=== PATIENT | female | born 1955 ===

== ENCOUNTER → 2024-06-13 10:41 | Outpatient (REF) | payer MEDICAID, SELFPAY | LOC: RCS 10:41 | PROVIDERS: ATTENDING PHYSICIAN Thoracic Surgery (Cardiothoracic Vascular Surgery) | DX: I50.9 Heart failure, unspecified (principal); I35.1 Nonrheumatic aortic (valve) insufficiency; I34.0 Nonrheumatic mitral (valve) insufficiency | CPT/HCPCS: 93306 ==

== ENCOUNTER 2024-06-30 09:15 | Inpatient (IN) | payer MEDICAID, SELFPAY ==
[2024-06-30] VITALS (19 sets, daily range): BP systolic 118–162; BP diastolic 61–111; BMI 32.9
[2024-06-30 10:13] LABS: PT 13.2 Sec (11.4-14.6)
[2024-06-30 10:14] LABS: APTT 31.7 Sec (23.4-35.0)
--- NOTE | 2024-06-30 10:31 | W.PN.UPDATE ---
Update Note
Progress Note Update
Patient admitted for preoperative workup and optimization for planned AVR/MVR/MAZE/ELAA on Wednesday 07/[address] Mcguire. Pt speaks primarily Azeri (Armenian), but her son in law is at the bedside for translation.
No changes to her previous history and physical, she reports ongoing shortness of breath at rest and with activity. Heart rate is irregular, +systolic murmur, lungs are clear; lower extremities with some mild edema.
We are planning for swan jeannine catheter placement today by cardiology with diuresis and/or inotrope if needed based on R heart numbers. I have also started a heparin gtt protocol as pt is in afib and takes eliquis at home (last dose 06/28). Continue
other home medications at this time.
--- NOTE | 2024-06-30 10:35 | PTCARENOTE ---
admitted pt to CVICU. routine EKG, labs completed. admission interview and med rec. completed.
[2024-06-30 10:46] LABS: Glycohemoglobin (HgbA1c) 5.6 % (4.0-5.6)
[2024-06-30] MEDS: LIPITOR 10 MG PO (11:45)
[2024-06-30] MEDS: ZESTRIL 2.5 MG PO (11:45)
--- NOTE | 2024-06-30 11:51 | CM ---
Addendum entered by BETHANY Burdick 06/30/24 16:05:
Met w/ patient and son in law at bedside to complete pre-op teaching.
Reviewed pre and post op routines.
Discussed post op restrictions to include lifting, driving, flying and sternal precautions.
Discussed post op MD appointments, Cardiac Rehab and visit from [facility] Transitional Care RN v VN, depending on availability in geographical location; this was discussed w/ pt./GARCIA.
Plan for CT Surg 07/04
CM to follow
Original Note:
CM following for DC planning needs.
Met w/ patient and son in law at bedside. Son provided translation for pt.
Pt. resides w/ son in law, dtr. and 2 grandchildren (ages 5, 7 mos).
Home is a 2 story home; bedroom located on 2nd floor. Pt. is functionally indep. with ADLs, mobility without the use of any assisted device.
Will return at a later time to complete pre-op teaching.
Anticipate CT Surgery 07/04.
CM to follow.
[2024-06-30] MEDS: SYNTHROID PO (12:03)
[2024-06-30] MEDS: HEPARIN 25000 UNITS/250 ML IV (12:05)
[2024-06-30 12:06] LABS: Hematocrit 38.9 % (37.0-47.0); Hemoglobin 13.3 g/dL (12.0-16.0); Mean Corp Hgb Conc. 34.2 g/dL (33.0-37.0); Mean Corpuscular Hgb 28.9 pg (27.0-31.0); Mean Corpuscular Volume 84.6 fL (81.0-99.0); Mean Platelet Volume 11.1 fL (7.4-10.4); Platelet Count 306 10^3/uL (130-400); Red Cell Dist. Width 13.2 % (11.5-14.5); White Blood Cell Count 6.8 10^3/uL (4.8-10.8)
[2024-06-30 12:30] LABS: ALT (SGPT) 17 U/L (0-35); AST (SGOT) 20 U/L (14-36); Albumin 4.2 g/dl (3.5-5.0); Alkaline Phosphatase 55 U/L (38-126); Blood Urea Nitrogen 17 mg/dl (7-17); Calcium 9.7 mg/dl (8.4-10.2); Carbon Dioxide 26 mmol/L (22-30); Chloride 105 mmol/L (98-107); Estimated Creatinine Clearance 78 ml/min; Glucose 95 mg/dl (70-99); Potassium 4.2 mmol/L (3.5-5.1); Sodium 141 mmol/L (135-145); Total Bilirubin 0.5 mg/dl (0.2-1.3); Total Protein 6.9 g/dl (6.3-8.2); eGFR > 60.00
[2024-06-30] MEDS: KCL 10 MEQ PO (13:50)
[2024-06-30] MEDS: LASIX 40 MG IV (13:50)
[2024-06-30] MEDS: TYLENOL 650 MG PO ×2 (13:56→22:20)
--- NOTE | 2024-06-30 14:00 | PTCARENOTE ---
received pt from lab instructor. pt aaox3, A fib per monitoring analyst HR 80s, PAP 30s/20s, CVP 10-11, CI 1.94, +1 edema, palpable pulses, pox 98% RA, lungs clear, +bs, voids, RIJ cordis w/ SWAN 53, lines zeroed and flushed, piv intact, heparin infusing as
ordered
--- NOTE | 2024-06-30 16:01 | CON.INTV ---
Consultation
Consultation Request
Date/Time Consultation Requested: 06/30/2024
Date/Time Consultation Performed: 06/30/2024
Requesting Provider: Dr. Mcguire
Performing Provider: Dr. Lenin Maldonado
Medical History
-
History of Present Illness:
68-year-old woman with history of bicuspid aortic valve, mixed aortic stenosis and aortic insufficiency, worsening symptoms, worsening LVEF, volume overloaded. Evaluated in the outpatient setting and deemed candidate for valvular surgery. Admitted
to the CVICU for optimization for upcoming surgery.
Right heart catheterization performed, Imperial-Isaias catheter left in place. Cardiac management
Past Medical History
Past Medical History: Other (See assessment and plan)
Social History
Tobacco: Non-smoker (Never)
Alcohol: None
Drug: None
Living: With Family
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
Family History
Family History: Reviewed & Not Pertinent
Allergies / Home Medications
Allergies
Allergy/AdvReac Type Severity Reaction Status Date / Time
No Known Allergies Allergy Unverified 06/30/24 11:02
Home Medications
�Medication �Instructions �Recorded �Confirmed �Last Taken �Type
apixaban 5 mg tablet (Eliquis) 5 mg PO BID Blood Clot 06/30/24 06/30/24 06/28/24 10:00 History
Prevention/Tx
atorvastatin 10 mg tablet 10 mg PO DAILY High Cholesterol 06/30/24 06/30/24 06/28/24 10:00 History
furosemide 20 mg tablet 20 mg PO BID Fluid 06/30/24 06/30/24 06/28/24 10:00 History
Retention/Swelling
levothyroxine 100 mcg tablet 100 mcg PO DAILY Thyroid 06/30/24 06/30/24 06/28/24 10:00 History
(Synthroid)
lisinopril 2.5 mg tablet 2.5 mg PO DAILY Blood Pressure 06/30/24 06/30/24 06/28/24 10:00 History
Review of Systems
-
History Source: Patient
All other systems: Negative unless noted
Vitals / Labs / Diagnostic Testing
Vital Signs
Temp Pulse Resp BP Pulse Ox
97.7 F 77 27 156/74 97
06/30/24 10:16 06/30/24 14:15 06/30/24 14:15 06/30/24 14:00 06/30/24 15:00
Lab Data
06/30/24 09:54
06/30/24 11:44
Laboratory Results
06/30/24
09:54
PT 13.2
INR 1.00
APTT 31.7
Diagnostic Testing:
Physical Exam
-
HEENT: Normocephalic
Cardiovascular: S1/S2 and Murmur
Respiratory: Clear and Non-Labored Respirations
GI: Soft and Non Distended
Neurology: Awake, Alert, Oriented and No Motor Deficits
Skin: Other (Lower extremity edema)
General: Comfortable
Assessment
-
Severe aortic stenosis/aortic regurgitation-progressive/symptomatic-signs of volume overload
Electively admitted 06/30/2024 for optimization for proposed surgery 07/04/2024
Malawian speaking only-son translates
Conditions present prior admission:
Paroxysmal atrial fibrillation
Aortic stenosis
Aortic regurgitation
Hypothyroidism
Goiter
DJD
Chronic low back pain
Hypothyroidism
Assessment and plan:
Patient admitted due to progressive/symptomatic aortic valve disease as above.
PA catheter has been placed-hemodynamic numbers to follow
Cardiac management directed by CT surgery and cardiology.
IV diuretics
Possible inotropes will be needed
Proposed surgery on 07/04/2024
-
Heparin drip given history of atrial fibrillation
Follow PTT
Follow H&H
-
Laboratory testing reviewed. Normal renal function. Normal hemoglobin. Normal LFTs. Normal albumin.
No history of pulmonary disease
Never smoker.
Chest x-ray clear of infiltrates this admission-reviewed
-
Incentive spirometry as able
Nutritional support
-
Critical care statement: A total of 31 minutes of critical care time was provided for this patient today. This includes management of unstable vital signs, evaluation of the patient at bedside, reviewing the patient's pertinent medical records
including ventilator settings, microbiology, laboratory evaluations and discussion with primary team, critical care nursing, and respiratory therapy.
--- NOTE | 2024-06-30 17:09 | PTCARENOTE ---
Amado repositioned by CT RONEL and Dr. Mendoza, cords and tubing changed. MV02 results reported to CT RON[facility].
--- NOTE | 2024-06-30 17:21 | ITS.CL.PN ---
Dispensing Audiologist - Procedure Note
Procedure
Procedure Note:
CARDIAC CATHETERIZATION REPORT
Date of Procedure: 06/30/24
Referring: Dr. London Mcguire
Indication: heart failure, valvular cardiomyopathy
PROCEDURE:
1. Right heart catheterization.
ACCESS:
8 Malawian right internal jugular vein
CATHETERS:
1. 7 Malawian Dearing-Isaias
HEMODYNAMIC DATA
SBP 168/80 (mean 115)
RA 15
RV 51/12 (EDP 16)
PA 46/31 (mean 37)
PCWP 30 (v-waves to 38)
CO/CI 3.46/1.90
SVR 2312
PVR 2.0
Radiation dose (mGy): 3.64
DAP (cm2.Gy): 0.4612
Fluoroscopy time (minutes): 0.8
CONCLUSIONS:
1. Elevated biventricular filling pressures with moderate post-capillary pulmonary hypertension and reduced cardiac index
RECOMMENDATIONS:
1. Expectant management after cardiac catheterization via right internal jugular approach
2. Ok to resume heparin
3. Pre-operative hemodynamic optimization ahead of planned AVR/MRV
Signed: Maicol Barnes MD, PhD
[2024-06-30 17:44] LABS: Mixed Venous O2 Saturation 70.8 %
[2024-06-30] MEDS: COLACE 100 MG PO (20:25)
--- NOTE | 2024-06-30 20:30 | PTCARENOTE ---
Patient received resting in bed. Patient A+A+Ox3. No neurological deficits noted. No c/o pain or discomfort. Language barrier - Spoke with patient's son on cell phone to discuss medications and plan of care - Son explained to patient. Patient
able to understand basic Telugu. Room air. SpO2 98%. Atrial Fibrillation. Heart rate 70's - 80's. Blood pressure via right cuff pressure 128/83 (96). Patient with no c/o chest pain, pressure or discomfort. Normoactive bowel sounds. No BM.
No c/o nausea. No vomiting. Female External Urinary device in place - Yellow urine. Bilateral lower extremity edema. Positive, palpable pulses. Right I.J. Cordis with Isabella Isaias catheter. CVP 4-6. PAP 22/10 (15). C.O. 3.53 C.I. 1.93 SVR
1947. IV Heparin gtt per protocol. Assessment as documented.
[2024-06-30 20:33] LABS: APTT 67.3 Sec (23.4-35.0)
--- NOTE | 2024-06-30 21:15 | PTCARENOTE ---
Most recent PTT result 67.3. In accordance with IV Heparin protocol for Cardiac TX/Acute Coronary, rate of infusion increased by 100 units/hr. IV Heparin now infusing at 1,100 units/hr (11 ml/hr). PTT 6hrs after rate change. No further changes
from previous assessment.
--- NOTE | 2024-06-30 23:00 | PTCARENOTE ---
Patient resting in bed. Dozing intermittently. C.O. 3.41 C.I. 1.86 SVR 1992 CVP 4-5 PAP 14/07 (15). Hemodynamic numbers discussed with SERVICE DESK ANALYST Doug Lambert. No changes in plan of care. Assessment as documented.
[2024-07-01] VITALS (27 sets, daily range): BP systolic 102–153; BP diastolic 56–99; BMI 32.4
--- NOTE | 2024-07-01 01:00 | PTCARENOTE ---
Patient dozing intermittently. No c/o pain or discomfort. IV Heparin gtt infusing per protocol. CVP 4-5 PAP 11/08 (14). C.O. 3.33 C.I. 1.82 SVR 2040. Assessment as documented.
--- NOTE | 2024-07-01 01:20 | W.PN.CT ---
Today's Communication / Plan
-
Monitor swan jeannine numbers, monitor mixed venous�
Maintain on heparin drip�
Chest xray in AM�
Assessment / Plan
-
Paroxysmal atrial fibrillation�
Aortic stenosis�
Aortic regurgitation�
Hypothyroidism�
Goiter�
DJD�
Chronic low back pain�
Hypothyroidism�
Subjective
Procedure
Planned AVR/MVR/MAZE/ELAA on Wednesday 07/[address] Mcguire�
-
Date of Service: July 01, 2024
Objective Data
-
Lab Results
06/30/24 09:54
PT 13.2 Sec (11.4-14.6) 06/30/24 09:54
INR 1.00 06/30/24 09:54
APTT 67.3 Sec (23.4-35.0) H 06/30/24 20:12
Vital Signs
Vital Signs
Temp Pulse Resp BP Pulse Ox
98.9 F 83 19 121/73 96
06/30/24 22:30 07/01/24 00:00 07/01/24 00:00 07/01/24 00:00 07/01/24 00:00
CT Intake/Output/Weight
06/30/24 06/30/24 07/01/24
06:59 18:59 06:59
Intake Total 60 / 513 453 / 513
Output Total 1200 / 1200
Balance -1140 / -687 453 / -687
SaO2: 96
Physical Exam
-
General: Awake
Cardiovascular: Irregular rate & rhythm
Respiratory: Clear
Extremities: Edema +1
--- NOTE | 2024-07-01 04:00 | PTCARENOTE ---
Patient resting in bed without difficulty. No c/o pain or discomfort. C.O. 4.14 C.I. 2.26 SVR 1642 CVP 5 PAP 20/10 (14). No further changes from previous assessment.
[2024-07-01 04:26] LABS: Blood Urea Nitrogen 18 mg/dl (7-17); Calcium 9.5 mg/dl (8.4-10.2); Carbon Dioxide 21 mmol/L (22-30); Chloride 104 mmol/L (98-107); Estimated Creatinine Clearance 78 ml/min; Glucose 95 mg/dl (70-99); Potassium 3.8 mmol/L (3.5-5.1); Sodium 143 mmol/L (135-145); eGFR > 60.00
[2024-07-01 04:29] LABS: APTT 70.3 Sec (23.4-35.0)
--- NOTE | 2024-07-01 05:30 | PTCARENOTE ---
Most recent PTT result 70.3. IV Heparin gtt increased by 100 units/hr. IV Heparin gtt now infusing at 1,200 units/hr (12 ml/hr). PTT to drawn 6hrs after rate change. No further changes from previous assessment.
[2024-07-01] MEDS: SYNTHROID PO (05:42)
--- NOTE | 2024-07-01 06:00 | PTCARENOTE ---
Portable CXR completed. 800 ml yellow urine via Female external urinary device (Pure Wick). Bed scale weight 80.3 kg. Assessment/Interventions as documented.
--- NOTE | 2024-07-01 08:00 | PTCARENOTE ---
Resumed care of patient from previous RN. Walking rounds completed. patient in bed at time of assessment. able to make needs known. AAOx3. patients family on cell phone and able to help translate. AFIB on monitor. Positive, palpable pulses. SpO2
98% on RA. VSS. + bowel sounds. purewick in place. Bilateral lower extremity edema +1. Right I.J. Cordis/swan present. CVP 4-6. PAP 22/10 (15). C.I. 2. IV Heparin gtt infusing per protocol. will continue to monitor.
[2024-07-01] MEDS: ZESTRIL 2.5 MG PO (09:12)
[2024-07-01] MEDS: COLACE 100 MG PO ×2 (09:12→19:55)
[2024-07-01] MEDS: LIPITOR 10 MG PO (09:12)
--- NOTE | 2024-07-01 10:13 | W.PN.CD ---
Addendum entered and electronically signed by Zachary Judd MD 07/01/24 10:51:
I saw and examined the patient.
The SERVICE ORDER CLERK's note was reviewed and I agree with the note.
Primary pressure supervisor Dr. Villareal
68-year-old with history of severe aortic stenosis, aortic regurgitation, mitral regurgitation paroxysmal atrial fibrillation, chronic anticoagulation with Eliquis and mild nonobstructive coronary artery disease who is preop for valve surgery by
Shayla. Patient had right heart catheterization yesterday showing elevated filling pressures with a wedge of 30 patient received additional IV diuresis currently respiratory status is stable while patient is laying in bed. PAD appears down to 15 at
this point. I asked the nurse to rezero and double check the pressures and PAD was still 15. Considering pressures and current respiratory status will not add additional diuretic currently we will need to monitor closely. Would not want to over
diurese with severe
-Patient is off Eliquis. Continue anticoagulation with heparin
-Monitor respiratory status and need for additional diuretic as noted above
-Would stop lisinopril
Original Note:
Today's Communication / Plan
-
d/c Lisinopril and monitor volume status.
Impression / Plan
-
Mrs. Jd Carter is a 68-year-old female (outpatient pressure supervisor is Dr. Villareal at [facility]) who is [place] Citizen Persian speaking, with bicuspid aortic valve with severe symptomatic aortic stenosis/aortic insufficiency, rheumatic moderate mitral regurgitation,
paroxysmal Afib on Eliquis (last dose 06/28/24), HFpEF 50-55%, mild nonobstructive CAD and hypothyroidism, who is here for cardiac optimization for upcoming valve surgery 07/04/24. She had a RHC yesterday with PCWP 30, received IV Lasix yesterday.
Aortic stenosis - severe, symptomatic.
- planned for AVR/MVR/MAZE/NANCY clip on 07/04/[address] Mcguire.
- IV diuresis with IV Lasix yesterday, monitor.
- stopped Lisinopril 2.5mg daily.
Mitral regurgitation - rheumatic, moderate.
- plan as above.
HFpEF - EF 50-55%.
- RHC with PCWP 30, IV Lasix and monitor.
Afib - paroxysmal.
- typically on Eliquis, last dose 06/28.
- now on IV Heparin.
Exam and interview was performed with her son Briana translating via telephone, offered [facility] for translation and they declined.
Physical Exam
Vital Signs/Labs
Vital Signs
Temp Pulse Resp BP Pulse Ox
98.5 F 83 18 102/59 97
07/01/24 08:00 07/01/24 09:12 07/01/24 08:00 07/01/24 09:12 07/01/24 08:00
06/30/24 07/01/24 07/02/24
06:59 06:59 06:59
Actual Weight 177 lb 0.499 oz
06/30/24 09:54
07/01/24 03:17
PT 13.2 Sec (11.4-14.6) 06/30/24 09:54
INR 1.00 06/30/24 09:54
APTT 70.3 Sec (23.4-35.0) H 07/01/24 03:49
Magnesium 2.0 mg/dl (1.6-2.3) 07/01/24 03:17
Physical Exam
Constitutional: No acute distress and Comfortable
EENT: Anicteric and Moist mucous membranes
Cardiovascular: Rhythm/rate is irregular and Systolic murmur present
Respiratory: Respiratory effort normal and Lungs clear to auscul.
GI: Soft, Non tender and Normal bowel sounds
Neuro/Psych: AO x 3
Other: Skin (warm, dry)
Data Reviewed
-
Date of Service: July 01, 2024
Medical Decision Making: Reviewed Test Results
EKG: Tracing Personally Visualized and interpreted
Echo: Report Reviewed by me
X-Ray/CT/US/MRI/NUC/PET: Report Reviewed by me
Labs: Labs Reviewed by me
Old Records: Reviewed
[2024-07-01 12:19] LABS: APTT 80.2 Sec (23.4-35.0)
[2024-07-01] MEDS: HEPARIN 25000 UNITS/250 ML IV (12:30)
--- NOTE | 2024-07-01 13:19 | W.PN.INTV ---
Today's Communication / Plan
Recommendations
Diuretics
Cardiac management
Follow electrolytes
Heparin drip
PA catheter in place
Assessment
-
Severe aortic stenosis/aortic regurgitation-progressive/symptomatic-signs of volume overload
Electively admitted 06/30/2024 for optimization for proposed surgery 07/04/2024
Citizen Of [place] speaking only-son translates
Conditions present prior admission:
Paroxysmal atrial fibrillation
Aortic stenosis
Aortic regurgitation
Hypothyroidism
Goiter
DJD
Chronic low back pain
Hypothyroidism
Assessment and plan:
Patient admitted due to progressive/symptomatic aortic valve disease as above.
PA catheter has been placed-hemodynamic numbers to follow
Cardiac management directed by CT surgery and cardiology.
Status post right heart catheterization 06/30/2024:1. Elevated biventricular filling pressures with moderate post-capillary pulmonary hypertension and reduced cardiac index
Chest x-ray 07/01/2024:Mild cardiomegaly. No acute infiltrates
-
IV diuretics
Proposed surgery on 07/04/2024
Follow PA catheter numbers
Follow renal function and electrolyte
-
Heparin drip given history of atrial fibrillation
Follow PTT
Follow H&H
-
Laboratory testing reviewed. Normal renal function. Normal hemoglobin. Normal LFTs. Normal albumin.
No history of pulmonary disease
Never smoker.
-
Incentive spirometry as able
Nutritional support
-
Critical care statement: A total of 31 minutes of critical care time was provided for this patient today. This includes management of unstable vital signs, evaluation of the patient at bedside, reviewing the patient's pertinent medical records
including ventilator settings, microbiology, laboratory evaluations and discussion with primary team, critical care nursing, and respiratory therapy.
Subjective Dataa
Subjective Data
Date of Service:
Date of Service: July 01, 2024
Objective Data
Data Reviewed
Vital Signs / I&O / Oxygen:
Vital Signs
Temp Pulse Resp BP Pulse Ox
98.6 F 74 18 129/61 99
07/01/24 11:57 07/01/24 11:57 07/01/24 11:57 07/01/24 11:00 07/01/24 11:57
Intake and Output
06/30/24 07/01/24 07/02/24
06:59 06:59 06:59
Intake Total 759 / 759 396 / 396
Output Total 1999 700 / 700
Balance -1241 / -1241 -304 / -304
SaO2 99
Labs/Micro/Reports
Lab Data
06/30/24 09:54
07/01/24 03:17
Laboratory Results
06/30/24 07/01/24 07/01/24
20:12 03:17 03:49
APTT 67.3 H Cancelled 70.3 H
07/01/24
11:44
APTT 80.2 H
[2024-07-01] MEDS: TYLENOL 650 MG PO (14:01)
[2024-07-01] MEDS: NITROSTAT (SUBLINGUAL) 0.4 MG SL ×3 (14:03→21:22)
--- NOTE | 2024-07-01 14:39 | PTCARENOTE ---
patient reports chest pain radiating to both shoulders. ekg done. SL nitro given as well as tylenol. pain subsided. DIRECTOR OF PUBLICATIONSDebra made aware. trop drawn and sent. will continue to monitor.
[2024-07-01 15:14] LABS: Troponin I < 0.012 ng/ml
--- NOTE | 2024-07-01 15:51 | CM ---
Reviewed chart. Me. Miles is scheduled for AVR.MVR on Thursday07/04/24. Telephone call to [facility] to see if they services his area. [facility] area. Will need to see next week if they can accept a new referral.
Prior to admission he resides with his haider, son -in-law and two grandchildren in a two story home. His bedroom/full bathroom is on the second floor Prior to admission he was independent with ambulation and adls. He does not have any DME in the
home. He has a prescription plan and uses [facility]. Medical work-up in progress. The discharge plan is to return home with his daughter and son-in-law and [facility] when medically stable.
--- NOTE | 2024-07-01 17:49 | PTCARENOTE ---
no change in previous assessment. pt helped me to turn and change her pads and sheets. purewick exchanged. will continue to monitor.
--- NOTE | 2024-07-01 19:00 | PTCARENOTE ---
pt c/o moderate chest pain at change of shift, sublingual ntg x1 given with relief to 1/10 pain. pt had tachy episode afterwards to the 140s briefly, CTPA notified. Back down to 90s Afib
[2024-07-01] MEDS: MELATONIN 5 MG PO (19:55)
--- NOTE | 2024-07-01 20:00 | PTCARENOTE ---
assumed care of patient @ 1900. received pt laying in bed, AOx3. non belizean speaking, son in room and available by phone to translate. Afib on tele HR 80s-90s.+ pulses, +1 edema b/l. PAPs 20s/10s, CVP ~ 3, BP 120s/60s. Lungs clear on room air.
belly soft, normoactive. purewick in place draining clear yellow urine. R IJ cordis with swan. Heparin running at 1200 u / hr PTT pending. call montilla within reach .
[2024-07-01 20:05] LABS: APTT > 200 Sec (23.4-35.0)
[2024-07-01 20:38] LABS: APTT 98.3 Sec (23.4-35.0)
--- NOTE | 2024-07-01 21:09 | PTCARENOTE ---
PTT >200 suspect, re drawn and new result 98.3
[2024-07-01] MEDS: MORPHINE SULFATE 1 MG IV (21:48)
--- NOTE | 2024-07-01 22:00 | PTCARENOTE ---
pt still c/o chest pain, morphine ordered and given with relief
[2024-07-02] VITALS (20 sets, daily range): BP systolic 79–156; BP diastolic 55–127
--- NOTE | 2024-07-02 00:54 | PTCARENOTE ---
pt resting comfortably, no change in assessment .
[2024-07-02] MEDS: MORPHINE SULFATE 1 MG IV (03:48)
--- NOTE | 2024-07-02 04:12 | W.PN.CT ---
Today's Communication / Plan
-
-S/p Right heart cath 06/30/24, with monitoring of hemodynamics
-Currently off diuretics
-Cont. current meds (heparin gtt, ASA, Synthroid, Lipitor)
-Cont. to hold SEDA-I/ARBs in preparation for OR
-Will D/C heparin gtt mission analyst to OR
-For AVR/MVR/MAZE/ELAA by Dr. Mcguire on Wednesday 07/04
-Cont. ongoing medical optimization
Assessment / Plan
-
Assessment:
-Paroxysmal atrial fibrillation�
-Moderate /AI/probable bicuspid aortic valve
-Moderate MR�
-Severely left atrial dilatation
-Class 1 obesity (BMI 32.4)
-Hypothyroidism�
-Goiter�
-DJD�
-Chronic low back pain�
Discussed patient care with: Cardiology, Nursing, Respiratory Therapy and Care Team
Subjective
Procedure
Planned AVR/MVR/MAZE/ELAA on Wednesday 07/[address] Mcguire�
-
Date of Service: July 02, 2024
Pt c/o mild chest pain last night, resolved with morphine
Objective Data
-
PT 13.2 Sec (11.4-14.6) 06/30/24 09:54
INR 1.00 06/30/24 09:54
APTT 98.3 Sec (23.4-35.0) H 07/01/24 20:14
Vital Signs
Vital Signs
Temp Pulse Resp BP Pulse Ox
98.8 F 75 22 141/75 98
07/02/24 00:00 07/02/24 00:00 07/02/24 00:00 07/02/24 00:00 07/02/24 00:00
CT Intake/Output/Weight
10/11/24 10/11/24 10/12/24
06:59 18:59 06:59
Intake Total 699 / 759 458 / 648 190 / 648
Output Total 800 / 2000 1100 / 1400 300 / 1400
Balance -101 / -1241 -642 / -752 -110 / -752
SaO2: 98 (RA)
Physical Exam
-
General: Awake, Oriented and AOx3
Cardiovascular: Murmur (2-6)
Respiratory: Clear
Extremities: Other (+trace edema)
Data Reviewed
-
Lab Results: Results Reviewed
Medications: Active Meds Reviewed
Chest X-Ray: Report Reviewed and Image Reviewed
ECG: Report Reviewed and Image Reviewed
[2024-07-02 04:13] LABS: Hematocrit 39.1 % (37.0-47.0); Hemoglobin 13.3 g/dL (12.0-16.0); Mean Corpuscular Hgb 28.3 pg (27.0-31.0); Mean Corpuscular Volume 83.2 fL (81.0-99.0); Platelet Count 282 10^3/uL (130-400); Red Cell Dist. Width 12.8 % (11.5-14.5); White Blood Cell Count 11.5 10^3/uL (4.8-10.8)
--- NOTE | 2024-07-02 04:20 | PTCARENOTE ---
morphine given for pain pain, no other change in assessment
[2024-07-02 04:26] LABS: APTT 81.6 Sec (23.4-35.0)
[2024-07-02 04:28] LABS: Blood Urea Nitrogen 17 mg/dl (7-17); Calcium 9.7 mg/dl (8.4-10.2); Carbon Dioxide 21 mmol/L (22-30); Chloride 106 mmol/L (98-107); Estimated Creatinine Clearance 78 ml/min; Glucose 111 mg/dl (70-99); Sodium 142 mmol/L (135-145); eGFR > 60.00
[2024-07-02] MEDS: TYLENOL 650 MG PO (06:17)
[2024-07-02] MEDS: SYNTHROID 100 MCG PO (06:17)
--- NOTE | 2024-07-02 08:00 | PTCARENOTE ---
Resumed care of patient from previous RN. Walking rounds completed. patient in bed at time of assessment. AAOx3. Remains AFIB on monitor. HR 90s + pulses. SpO2 98% on RA. VSS. + bowel sounds. Bilateral lower extremity edema +1-+2. Right I.J.
Cordis/swan present. Order to d/c swan. Getting patient up and into bathroom now with min assist. IV Heparin gtt infusing per protocol. will continue to monitor.
[2024-07-02] MEDS: COLACE 100 MG PO ×2 (09:18→20:08)
[2024-07-02] MEDS: BUMEX 1 MG IV (09:18)
[2024-07-02] MEDS: LIPITOR 10 MG PO (09:18)
--- NOTE | 2024-07-02 11:16 | W.PN.CD ---
Today's Communication / Plan
-
Will assess response to diuretic given by CT surgery. Caution not to overdiuresis
Chest x-ray
Troponin ECG is ordered
Impression / Plan
-
Mrs. Jd Carter is a 68-year-old female (outpatient rn first assistant is Dr. Villareal at [facility]) who is Citizen Of [place] Lithuanian speaking, with bicuspid aortic valve with severe symptomatic aortic stenosis/aortic insufficiency, rheumatic moderate mitral regurgitation,
paroxysmal Afib on Eliquis (last dose 06/28/24), HFpEF 50-55%, mild nonobstructive CAD and hypothyroidism, who is here for cardiac optimization for upcoming valve surgery 07/04/24. She had a RHC yesterday with PCWP 30, received IV Lasix yesterday.
Aortic stenosis - severe, symptomatic.
- planned for AVR/MVR/MAZE/NANCY clip on 07/04/[address] Mcguire.
-Patient with right heart cath on admission with high filling pressures and wedge pressure of 30 received additional diuretic on the day of admission pressures appear to be better on 07/01/2024 although question of how well Amado was working at that
time. Additional diuretic given today by CT surgery will monitor response
- stopped Lisinopril 2.5mg daily.
.
Chest discomfort and back discomfort. Reported symptoms yesterday etiology unclear ECG without ischemic changes troponin negative. Patient with no known obstructive disease
-Chest x-ray
-Troponin negative. Check follow-up troponin and ECG
Mitral regurgitation - rheumatic, moderate.
- plan as above.
HFpEF - EF 50-55%.
- RHC with PCWP 30, IV Lasix and monitor.
Afib - paroxysmal.
- typically on Eliquis, last dose 06/28.
- now on IV Heparin.
Exam and interview was performed with her son Briana translating via telephone,
Physical Exam
Vital Signs/Labs
Vital Signs
Temp Pulse Resp BP Pulse Ox
98.6 F 93 17 146/127 96
07/02/24 08:00 07/02/24 09:00 07/02/24 09:00 07/02/24 09:00 07/02/24 08:00
07/01/24 07/02/24 07/03/24
06:59 06:59 06:59
Actual Weight 80.3 kg
07/02/24 03:48
PT 13.2 Sec (11.4-14.6) 06/30/24 09:54
INR 1.00 06/30/24 09:54
APTT 81.6 Sec (23.4-35.0) H 07/02/24 03:48
Magnesium 2.0 mg/dl (1.6-2.3) 07/01/24 03:17
LAB Results
07/01/24
14:43
Troponin I < 0.012
Physical Exam
Constitutional: No acute distress
EENT: Anicteric
Cardiovascular: Rhythm & rate is regular
Respiratory: Lungs clear to auscul.
GI: Soft, Non tender and Normal bowel sounds
Neuro/Psych: Alert and AO x 3
Data Reviewed
-
Date of Service: July 02, 2024
Medical Decision Making: Reviewed Test Results
X-Ray/CT/US/MRI/NUC/PET: Report Reviewed by me
Medical Tests (PFT, Pathology etc): Report Reviewed by me
Labs: Labs Reviewed by me
[2024-07-02 12:04] LABS: Troponin I < 0.012 ng/ml
--- NOTE | 2024-07-02 12:07 | W.PN.INTV ---
Today's Communication / Plan
Recommendations
Continue medical optimization
IV diuretics
Increase activity as able
Anticoagulation
Proposed surgery for Thursday
Will see again postoperatively
Assessment
-
Severe aortic stenosis/aortic regurgitation-progressive/symptomatic-signs of volume overload
Electively admitted 06/30/2024 for optimization for proposed surgery 07/04/2024
Gabonese speaking only-son translates
Conditions present prior admission:
Paroxysmal atrial fibrillation
Aortic stenosis
Aortic regurgitation
Hypothyroidism
Goiter
DJD
Chronic low back pain
Hypothyroidism
Assessment and plan:
Patient admitted due to progressive/symptomatic aortic valve disease as above.
Continue with medical optimization
PA catheter discontinued today 07/02/2024
Cardiac management directed by CT surgery and cardiology.
Chest x-ray 07/02/2024: Reviewed showed clear lungs. No pneumothorax. Stable cardiomegaly
Status post right heart catheterization 06/30/2024:1. Elevated biventricular filling pressures with moderate post-capillary pulmonary hypertension and reduced cardiac index
-
Proposed surgery on 07/04/2024
Follow PA catheter numbers
Follow renal function and electrolyte
-
Heparin drip given history of atrial fibrillation
Follow PTT
Follow H&H
-
No history of pulmonary disease
Never smoker.
-
Incentive spirometry as able
Nutritional support
-
Will see again postoperatively.
Subjective Dataa
Subjective Data
Date of Service:
Date of Service: July 02, 2024
Chief Complaint: Change Control Coordinator Follow Up (Severe aortic valve disease)
Subjective:
Interview through family member
No significant complaints
Patient is tense with line in place- limited mobility
Review of Systems
General: Fever (n)
Cardiopulmonary: Dyspnea (n)
GI: Abdominal Pain (n) and Nausea (n)
Objective Data
Data Reviewed
Vital Signs / I&O / Oxygen:
Vital Signs
Temp Pulse Resp BP Pulse Ox
98.6 F 93 17 146/127 96
07/02/24 08:00 07/02/24 09:00 07/02/24 09:00 07/02/24 09:00 07/02/24 08:00
Intake and Output
07/01/24 07/02/24 07/03/24
06:59 06:59 06:59
Intake Total 759 / 759 806 / 806
Output Total 1999 / 1999 1700 / 1700
Balance -1241 / -1241 -894 / -894
SaO2 96
Physical Exam
General: Comfortable
HEENT: Normocephalic
Cardiovascular: S1-S2 and Murmur
Respiratory: Clear and Non-Labored Respirations
GI: Soft and Non Distended
Neurology: Awake and Alert
Labs/Micro/Reports
Lab Data
07/02/24 03:48
Laboratory Results
07/01/24 07/01/24 07/01/24
11:44 18:59 20:14
APTT 80.2 H > 200 H* 98.3 H
07/02/24
03:48
APTT 81.6 H
[2024-07-02 12:30] LABS: Blood Urea Nitrogen 16 mg/dl (7-17); Calcium 9.7 mg/dl (8.4-10.2); Carbon Dioxide 19 mmol/L (22-30); Chloride 104 mmol/L (98-107); Estimated Creatinine Clearance 78 ml/min; Glucose 145 mg/dl (70-99); Potassium 4.1 mmol/L (3.5-5.1); Sodium 141 mmol/L (135-145); eGFR > 60.00
[2024-07-02] MEDS: HEPARIN 25000 UNITS/250 ML IV (13:49)
[2024-07-02] MEDS: NITROSTAT (SUBLINGUAL) 0.4 MG SL (13:50)
--- NOTE | 2024-07-02 17:45 | PTCARENOTE ---
no change in previous assessment. continues to walk in and out of bathroom with minimum assistance. will continue to monitor.
--- NOTE | 2024-07-02 20:00 | PTCARENOTE ---
Assumed care of patient at 1900. Patient found in bed at time of assessment. Patient is AOx4, follows commands appropriately, moves all extremities. Patient is is from [place] speaks French translation line present. Lung sounds are diminished in the
bases patient is on RA with saO2 of 100%. Heart sounds are audible and irregular, there is a murmur present on auscultation, patient has normal palpable pulses, and there is +1 BLE edema present. Patient has normal active BS and is voiding clear
yellow in the bathroom. Skin appears grossly intact. Patient has a R IJ cordis receiving KVO and L AC PIV. Patient currently has heparin gtt running at 1200 units/hr. VSS. Patient has no complaints at this time.
[2024-07-02] MEDS: DILAUDID 0.5 MG IV (23:35)
[2024-07-03] VITALS (13 sets, daily range): BP systolic 99–141; BP diastolic 71–106; BMI 32.3
--- NOTE | 2024-07-03 02:23 | PTCARENOTE ---
Patient reassessed. Patient was c/o 5/10 chest pain. Reported pain previously unrelieved by nitro or morphine. CT PA notified. Received order for dilaudid. Administered and upon reassessment patient asleep. Remains in afib on the monitor. Patient is
stable.
--- NOTE | 2024-07-03 04:01 | W.PN.CT ---
Today's Communication / Plan
-
Plan:
-S/p Right heart cath 06/30/24
-D/C'd swan yesterday 07/02. Resumed diuresis yesterday
-Cont. current meds (heparin gtt, ASA, Synthroid, Lipitor)
-Cont. to hold SEDA-I/ARBs in preparation for OR
-Will D/C heparin gtt partner management consultant to OR
-For AVR/MVR/MAZE/ELAA by Dr. Mcguire tomorrow 07/04
-Cont. ongoing medical optimization
Assessment / Plan
-
Assessment:
-Paroxysmal atrial fibrillation�
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
-Moderate MR�
-Severely left atrial dilatation
-LVEF 47% per echo 06/13/24
-Class 1 obesity (BMI 32.4)
-Hypothyroidism�
-Goiter�
-DJD�
-Lymphedema
-Chronic low back pain�
Discussed patient care with: Cardiology, Nursing, Respiratory Therapy, Pharmacy and Care Team
Subjective
-
Date of Service: July 03, 2024
Pt c/o chest pain last night, likely d/t valvular disease, relieved by Dilaudid
Objective Data
-
Lab Results
07/02/24 03:48
07/02/24 10:51
PT 13.2 Sec (11.4-14.6) 06/30/24 09:54
INR 1.00 06/30/24 09:54
APTT 81.6 Sec (23.4-35.0) H 07/02/24 03:48
Vital Signs
Vital Signs
Temp Pulse Resp BP Pulse Ox
98.6 F 87 20 123/94 96
07/02/24 23:00 07/02/24 23:39 07/02/24 23:00 07/02/24 23:39 07/02/24 23:39
CT Intake/Output/Weight
07/02/24 07/02/24 07/03/24
06:59 18:59 06:59
Intake Total 348 / 806
Output Total 600 / 1700
Balance -252 / -894
SaO2: 96 (RA)
Physical Exam
-
General: Awake, Oriented and AOx3
Cardiovascular: Irregular rate & rhythm, Murmur, No Rub and No Gallop
Respiratory: Clear
Sternum: Stable
Extremities: No Edema
Data Reviewed
-
Lab Results: Results Reviewed
Medications: Active Meds Reviewed
Chest X-Ray: Report Reviewed and Image Reviewed
ECG: Report Reviewed and Image Reviewed
[2024-07-03 05:02] LABS: APTT 68.3 Sec (23.4-35.0)
--- NOTE | 2024-07-03 06:08 | PTCARENOTE ---
Patient reassessed. VSS. Dilaudid effective pain management for remainder of night. Remains in Afib on the monitor. PTT not therapeutic heparin titrated per protocol.
[2024-07-03] MEDS: SYNTHROID 100 MCG PO (06:21)
[2024-07-03 07:36] LABS: Blood Urea Nitrogen 15 mg/dl (7-17); Calcium 9.8 mg/dl (8.4-10.2); Carbon Dioxide 26 mmol/L (22-30); Chloride 103 mmol/L (98-107); Estimated Creatinine Clearance 78 ml/min; Glucose 97 mg/dl (70-99); Sodium 142 mmol/L (135-145); eGFR > 60.00
[2024-07-03] MEDS: COLACE 100 MG PO ×2 (08:06→20:10)
[2024-07-03] MEDS: LIPITOR 10 MG PO (08:06)
--- NOTE | 2024-07-03 09:02 | PTCARENOTE ---
Assumed patient care at 0700. Patient is AOx4, follows commands appropriately, moves all extremities. Patient is is from [place] speaks Azeri. Translation line present. Lung sounds are diminished in the bases patient is on RA with saO2 of 100%.
Heart sounds are audible and irregular, there is a murmur present on auscultation, patient has normal palpable pulses, and there is +1 BLE edema present. Patient has normal active BS and is voiding clear yellow in the bathroom. Skin appears grossly
intact. Patient has a RIJ cordis receiving KVO and LAC PIV. Patient currently has heparin gtt running at 1300 units/hr. VSS. Patient has no complaints at this time. Type and screen sent. APTT due at 1130. Surgery scheduled for tomorrow morning.
[2024-07-03 09:45] LABS: Potassium 4.1 mmol/L (3.5-5.1)
[2024-07-03] MEDS: HEPARIN 25000 UNITS/250 ML IV (09:47)
--- NOTE | 2024-07-03 09:50 | W.PN.CD ---
Today's Communication / Plan
-
Continue current therapy. Timing of surgery directed by Dr. Mcguire
Leukocytosis. Mild elevation continue to monitor. Patient afebrile
Impression / Plan
-
Mrs. Jd Carter is a 68-year-old female (outpatient city director is Dr. Villareal at [facility]) who is [place] speaking, with bicuspid aortic valve with severe symptomatic aortic stenosis/aortic insufficiency, rheumatic moderate mitral regurgitation,
paroxysmal Afib on Eliquis (last dose 06/28/24), HFpEF 50-55%, mild nonobstructive CAD and hypothyroidism, who is here for cardiac optimization for upcoming valve surgery 07/04/24. She had a RHC yesterday with PCWP 30, received IV Lasix yesterday.
Aortic stenosis - severe, symptomatic.
-Planned for AVR/MVR/MAZE/NANCY clip on 07/04/[address] Mcguire.
-Patient with right heart cath on admission with high filling pressures and wedge pressure of 30 received additional diuretic on the day of admission pressures appear to be better on 07/01/2024 although question of how well [place] was working at that
time. Catheter since removed.
- stopped Lisinopril 2.5mg daily.
.
Chest discomfort and back discomfort. Reported symptoms yesterday etiology unclear ECG without ischemic changes troponin negative. Chest x-ray without pneumothorax. Patient with no known obstructive coronary disease. Patient now feeling fine
with no recurrent complaints. Unclear if she felt better after additional diuresis or felt better after [place] removed
Mitral regurgitation - rheumatic, moderate.
- plan as above.
HFpEF - EF 50-55%.
- RHC with PCWP 30, IV Lasix and monitor.
Afib - paroxysmal.
- typically on Eliquis, last dose 06/28.
- now on IV Heparin.
Leukocytosis. Mild elevation continue to monitor. Patient afebrile
Exam and interview was performed with her son Briana translating via telephone,
Physical Exam
Vital Signs/Labs
Vital Signs
Temp Pulse Resp BP Pulse Ox
97.5 F 69 20 141/85 97
07/03/24 07:59 07/03/24 08:00 07/03/24 07:59 07/03/24 08:00 07/03/24 08:00
07/02/24 07/03/24 07/04/24
06:59 06:59 06:59
Actual Weight 80.1 kg
07/02/24 03:48
07/03/24 06:28
PT 13.2 Sec (11.4-14.6) 06/30/24 09:54
INR 1.00 06/30/24 09:54
APTT 68.3 Sec (23.4-35.0) H 07/03/24 04:15
Magnesium 2.0 mg/dl (1.6-2.3) 07/03/24 06:28
LAB Results
07/01/24 07/02/24
14:43 10:51
Troponin I < 0.012 < 0.012
Physical Exam
Constitutional: No acute distress
Cardiovascular: Rhythm & rate is regular and Systolic murmur present
Respiratory: Respiratory effort normal
GI: Soft, Non tender and Normal bowel sounds
Neuro/Psych: Alert and Oriented
Data Reviewed
-
Date of Service: July 03, 2024
Medical Decision Making: Reviewed Test Results
Medical Tests (PFT, Pathology etc): Report Reviewed by me
Labs: Labs Reviewed by me
[2024-07-03 11:12] LABS: APTT 101.8 Sec (23.4-35.0)
--- NOTE | 2024-07-03 14:26 | PTCARENOTE ---
Patient VSS. Denies pain. APTT Therapeutic, no changes made to heparin gtt infusion rate, running at 13 ml/hr. Ambulating to bathroom to void with standby assist, well tolerated.
--- NOTE | 2024-07-03 18:06 | PTCARENOTE ---
Patient denies pain. Ambulating with standby assist. Heparin gtt remained infusing at 13 ml/hr through cordis. APTT repeat drawn, awaiting results. Vital signs stable.
[2024-07-03 18:42] LABS: APTT 111.4 Sec (23.4-35.0)
--- NOTE | 2024-07-03 20:30 | PTCARENOTE ---
Assumed care of pt from dayshift RN. Walking rounds completed. Pt AAOx3. NICOLE. Pt non-Cypriot speaking. Language line in the room. Pt is a-fib on the tele monitor. HR 90s. BP stable. R/L blood pressure obtained. Bilateral LE +2 edema. Palpable
pulses. Pt on RA. POX 98-100%. Lung sounds audible. Abdomen soft/nontender. +BS. Pt OOB to void in the bathroom independently. Right IJ cordis and left AC PIV CDI. Heparin infusing per protocol. Language line used to update pt with plan of care for
the night and CVOR prep details. Questions answered. No c/o pain at this time. See worklist for full nursing assessment and interventions. Call montilla within reach.
--- NOTE | 2024-07-03 21:45 | PTCARENOTE ---
Pt prepped for for CVOR and given first CHG soap bath. Gown and linens changed.
[2024-07-04] VITALS (11 sets, daily range): BP systolic 93–143; BP diastolic 63–89; BMI 32.2
--- NOTE | 2024-07-04 00:13 | PTCARENOTE ---
No change in assessment. Pt a-fib on the tele monitor. VSS. PTT drawn and sent. Heparin infusing as ordered. Call montilla within reach.
[2024-07-04 04:18] LABS: Hematocrit 39.7 % (37.0-47.0); Hemoglobin 13.9 g/dL (12.0-16.0); Mean Corpuscular Hgb 29.8 pg (27.0-31.0); Mean Corpuscular Volume 85.2 fL (81.0-99.0); Mean Platelet Volume 10.6 fL (7.4-10.4); Platelet Count 285 10^3/uL (130-400); Red Blood Cell Count 4.66 10^6/uL (4.20-5.40); Red Cell Dist. Width 12.8 % (11.5-14.5); White Blood Cell Count 12.1 10^3/uL (4.8-10.8)
[2024-07-04 04:41] LABS: Blood Urea Nitrogen 21 mg/dl (7-17); Carbon Dioxide 21 mmol/L (22-30); Chloride 103 mmol/L (98-107); Estimated Creatinine Clearance 78 ml/min; Glucose 109 mg/dl (70-99); Magnesium 1.9 mg/dl (1.6-2.3); Potassium 4.4 mmol/L (3.5-5.1); Sodium 140 mmol/L (135-145); eGFR > 60.00
[2024-07-04] MEDS: LOPRESSOR 25 MG PO (05:59)
[2024-07-04] MEDS: PROTONIX 40 MG PO (05:59)
[2024-07-04] MEDS: MAGNESIUM OXIDE 500 MG PO (05:59)
[2024-07-04] MEDS: SYNTHROID PO (06:00)
[2024-07-04] MEDS: BACTROBAN 2% OINTMENT 1 APPLIC NASAL ×2 (06:00→19:48)
--- NOTE | 2024-07-04 06:06 | PTCARENOTE ---
Pt given second CHG shower. Gown and linens changed. VS and weight obtained. NPO since midnight. Ordered medications administered. VSS. Heparin infusing per protocol. Up ad filomena to void. Call montilla within reach.
--- NOTE | 2024-07-04 06:32 | W.CVOR.SURPR ---
CVOR Surgeon Immed Pre Op
-
I have examined this patient prior to performance of the scheduled procedure.
The patient's condition is unchanged from the time of the dictated/written History and
Physical and the patient is able to undergo the scheduled procedure.
Sternotomy AVR (bio), MVR (bio), LA MAZE, NANCY Clip
[2024-07-04 06:34] LABS: APTT 88.6 Sec (23.4-35.0)
[2024-07-04 07:33] LABS: ACT+ - POC 104 Seconds (82-134)
[2024-07-04 07:34] LABS: Urine Albumin Negative (Neg - Trace); Urine Bilirubin Negative (Negative); Urine Character Clear (Clear); Urine Color Straw; Urine Glucose Negative (Negative); Urine Ketone Negative (Negative); Urine Leukocyte Negative (Negative); Urine Nitrite Negative (Negative); Urine Occult Blood Negative (Negative); Urine Specific Gravity 1.005 (<1.030); Urine Urobilinogen Negative (Neg - 1+)
--- NOTE | 2024-07-04 07:42 | W.PN.INTV ---
Today's Communication / Plan
Recommendations
Ventilator settings reviewed
Wean FiO2
Wean sedation
Spontaneous breathing trial
Chest tubes per surgery
Pressors and inotropes as needed
Assessment
-
Severe aortic stenosis/aortic regurgitation-progressive/symptomatic-signs of volume overload
Electively admitted 06/30/2024 for optimization for proposed surgery 07/04/2024
Status post AVR-25 mm bioprosthetic, MVR-27 mm bioprosthetic, left atrial maze/RF ablation and cryo, left atrial appendage exclusion-07/04/2024-Dr. Mcguire
Mild leukocytosis
Omani speaking only-son translates
Conditions present prior admission:
Paroxysmal atrial fibrillation
Aortic stenosis
Aortic regurgitation
Hypothyroidism
Goiter
DJD
Chronic low back pain
Hypothyroidism
Plan:
Seen immediately postop in the CVICU still on the ventilator and pressors
Ventilator settings reviewed
FiO2 will be weaned
Minute ventilation will be adjusted
Arterial blood gases will be monitored
Spontaneous breathing trial will be attempted with hopeful extubation after anesthesia/sedation wear off
Pulmonary artery catheter parameters will be followed
Pressors/antihypertensive/inotropes/diuretics will be provided as needed
Monitor chest tube output
Monitor hemoglobin
Monitor platelet count and coags
Transfuse blood product if needed
CT surgery following chest tubes
Preoperative the patient was status post right heart catheterization 06/30/2024:Elevated biventricular filling pressures with moderate post-capillary pulmonary hypertension and reduced cardiac index
Monitor blood sugar
Insulin drip per protocol
Aspiration precautions
VAP prevention protocol
DVT prophylaxis
Early nutrition
Early mobilization
Critical care statement: A total of 46 minutes of critical care time was provided for this patient today. This includes management of ventilator, spontaneous breathing trial, arterial blood gases, pressors, of unstable vital signs, evaluation of the
patient at bedside, reviewing the patient's pertinent medical records including radiographs, microbiology, laboratory evaluations, and discussion with primary team and critical care nursing.
Data:
Chest x-ray 07/04/2024-endotracheal tube tip 2.2 cm above [place], postoperative changes
Subjective Dataa
Subjective Data
Date of Service:
Date of Service: July 04, 2024
Chief Complaint: Manager Casino Follow Up (Severe aortic valve disease), Pulmonary Follow Up and Vent Management Follow Up
Subjective:
Patient seen postoperatively in the cardiovascular intensive care unit, patient intubated, review of systems unobtainable
Review of Systems
General: Unobtainable - Pat Unresp
Objective Data
Data Reviewed
Vital Signs / I&O / Oxygen:
Vital Signs
Temp Pulse Resp BP Pulse Ox
98.2 F 94 16 143/89 98
07/04/24 06:02 07/04/24 06:02 07/04/24 06:02 07/04/24 06:02 07/04/24 06:02
Intake and Output
07/03/24 07/04/24 07/05/24
06:59 06:59 06:59
Intake Total 62 / 85 541 / 541
Balance 62 / 85 541 / 541
SaO2 98
Physical Exam
General: Respiratory Distress (n) and Comfortable
HEENT: Normocephalic and Anicteric
Cardiovascular: Regular Rhythm and Murmur
Respiratory: Clear, Non-Labored Respirations and ET Tube
GI: Soft, Non Distended and Non Tender
Neurology: Other (Sedated on a ventilator)
Labs/Micro/Reports
Lab Data
07/04/24 03:58
07/04/24 03:58
Laboratory Results
07/03/24 07/03/24 07/03/24
10:47 17:53 18:21
APTT 101.8 H Cancelled 111.4 H
07/04/24 07/04/24
00:11 06:12
APTT 94.0 H 88.6 H
[2024-07-04 08:26] LABS: ACT+ - POC 484 Seconds (82-134)
[2024-07-04 08:34] LABS: B.E. - POC -2.7 mmol/L; Glucose - POC 103 mg/dl (70-99); HCO3 - POC 20 mmol/L (21-29); Hematocrit - POC 39 % PCV (37-47); Hemodilution- POC No; Hemoglobin Calculated - POC 13.1; O2 Saturation %Calculated-POC 99.9 % (92-96); PCO2 - POC 28 mmHg (35-45); PO2 - POC 311 mmHg (80-100); POC Comment BASELINE; Potassium - POC 3.6 mmol/L (3.6-5.0); Sodium - POC 140 mmol/L (135-145); pH - POC 7.46 (7.35-7.45)
[2024-07-04 08:42] LABS: ACT+ - POC 537 Seconds (82-134)
[2024-07-04 09:00] LABS: B.E. - POC 3.9 mmol/L; Glucose - POC 148 mg/dl (70-99); HCO3 - POC 28 mmol/L (21-29); Hematocrit - POC 30 % PCV (37-47); Hemodilution- POC Yes; Hemoglobin Calculated - POC 10.1; Ionized Calcium - POC 1.03 mmol/L (1.12-1.27); PCO2 - POC 41 mmHg (35-45); PO2 - POC 463 mmHg (80-100); POC Comment CPB; Potassium - POC 4.2 mmol/L (3.6-5.0); Sodium - POC 137 mmol/L (135-145); pH - POC 7.45 (7.35-7.45)
[2024-07-04 09:12] LABS: ACT+ - POC 609 Seconds (82-134)
[2024-07-04 09:27] LABS: B.E. - POC 1.2 mmol/L; Glucose - POC 132 mg/dl (70-99); HCO3 - POC 25 mmol/L (21-29); Hematocrit - POC 29 % PCV (37-47); Hemodilution- POC Yes; Hemoglobin Calculated - POC 9.9; Ionized Calcium - POC 1.05 mmol/L (1.12-1.27); O2 Saturation %Calculated-POC 99.8 % (92-96); PCO2 - POC 34 mmHg (35-45); PO2 - POC 231 mmHg (80-100); POC Comment CPB; Potassium - POC 4.2 mmol/L (3.6-5.0); Sodium - POC 140 mmol/L (135-145); pH - POC 7.47 (7.35-7.45)
[2024-07-04 09:57] LABS: B.E. - POC 0.7 mmol/L; Glucose - POC 129 mg/dl (70-99); HCO3 - POC 27 mmol/L (21-29); Hematocrit - POC 31 % PCV (37-47); Hemodilution- POC Yes; Hemoglobin Calculated - POC 10.7; Ionized Calcium - POC 1.12 mmol/L (1.12-1.27); O2 Saturation %Calculated-POC 99.4 % (92-96); PCO2 - POC 50 mmHg (35-45); PO2 - POC 170 mmHg (80-100); POC Comment CPB; Potassium - POC 4.6 mmol/L (3.6-5.0); Sodium - POC 140 mmol/L (135-145); pH - POC 7.34 (7.35-7.45)
[2024-07-04] MEDS: COLACE PO (10:19)
[2024-07-04] MEDS: LIPITOR PO (10:19)
[2024-07-04 10:23] LABS: B.E. - POC 0.7 mmol/L; Glucose - POC 168 mg/dl (70-99); HCO3 - POC 26 mmol/L (21-29); Hematocrit - POC 32 % PCV (37-47); Hemodilution- POC Yes; Ionized Calcium - POC 1.12 mmol/L (1.12-1.27); O2 Saturation %Calculated-POC 99.9 % (92-96); PCO2 - POC 43 mmHg (35-45); PO2 - POC 269 mmHg (80-100); POC Comment BASELINE; Potassium - POC 4.5 mmol/L (3.6-5.0); Sodium - POC 140 mmol/L (135-145); pH - POC 7.39 (7.35-7.45)
[2024-07-04 10:51] LABS: B.E. - POC -1.4 mmol/L; Glucose - POC 153 mg/dl (70-99); HCO3 - POC 25 mmol/L (21-29); Hematocrit - POC 33 % PCV (37-47); Hemodilution- POC Yes; Hemoglobin Calculated - POC 11.2; Ionized Calcium - POC 1.11 mmol/L (1.12-1.27); O2 Saturation %Calculated-POC 99.4 % (92-96); PCO2 - POC 47 mmHg (35-45); PO2 - POC 166 mmHg (80-100); POC Comment WARM; Potassium - POC 4.3 mmol/L (3.6-5.0); Sodium - POC 142 mmol/L (135-145); pH - POC 7.33 (7.35-7.45)
--- NOTE | 2024-07-04 10:52 | CM ---
Reviewed chart. Mr. Oliva is in the operating room today. Prior to admission he resides with his daughter, son-in-law and two grandchildren in a two story home. His bedroom/full bathroom are on the first floor. Prior to admission he was independent
with ambulation and adls. He does not have any DME in the home. He has a prescription plan and uses [facility]. Medical work-up in progress. The discharge plan is to return home with his family and [facility] when medically stable.
--- NOTE | 2024-07-04 11:25 | W.PN.CT.SURG ---
CT Surgery Operative Note
-
CARDIAC SURGERY OPERATIVE REPORT
Preoperative Diagnosis: Moderately severe aortic valve stenosis, severe aortic valve insufficiency, mixed mitral valve pathology with mostly regurgitation, paroxysmal atrial fibrillation
Postoperative Diagnosis: Same
Procedure(s) Performed:
1. Standard sternotomy with aortic and bicaval cannulation
2. Surgical aortic valve replacement [25 mm bioprosthesis]
3. Surgical, chordal sparing, mitral valve replacement [27 mm bioprosthesis]
4. Left atrial maze [RF ablation and cryo]
5. Left atrial appendage exclusion [40 mm clip]
6. Placement of temporary atrial and ventricular pacing wires
7. Transesophageal echocardiography
Date of Surgery: 07/04/2024
Comorbidities:
1. Moderately severe aortic valve stenosis, bicuspid valve with heavy calcification and sclerosis
2. Severe aortic valve insufficiency
3. Moderately severe mitral valve insufficiency with sclerosis and thickening particularly of the posterior leaflet at the anterior lateral commissure, resembles a rheumatic valve, type IIIa
4. Paroxysmal atrial fibrillation
5. Hypothyroidism with a goiter
6. Degenerative joint disease
7. Morbidly obese with a BMI of greater than 30
8. Elevated wedge with large V waves up to 38, moderately reduced cardiac index of 1.9 on cath during hospitalization demonstrating elevated filling pressures, acute on chronic congestive systolic diastolic heart failure
Attending Surgeon: London Mcguire MD, MS
Assistants: London Hirsch PA-C (present and necessary to assistant professor, retraction, suction, exposure, suture management, and wound closure under my direction)
Anesthesiology: Aric De MD and Allen Kan CRNA
Scrub and Circulating RNs: Piper Collins, SRINIVAS, Chléo Hayward RN
Water Treatment Plant Engineer: Haleigh Gonsales CCP
Anesthesia: GETA
EBL: per perfusion records
Products: None, was able to scavenge 250cc of cell-saver blood from the field and pump
CPB Time: 127 minutes
Aortic Cross Clamp Time: 102 minutes
Indication(s) for Procedures: This is a 68-year-old female who is well-known to me and being followed as an outpatient. She has severe aortic valve insufficiency as well as stenosis and bicuspid valve morphology. The mitral valve was also abnormal
had a mixed pathology sclerosis with a stiff and sclerotic appearing posterior leaflet with moderately severe mitral valve insufficiency. She had new reduction in her left ventricular ejection fraction to approximately 47% and her symptoms
progressed. She was admitted for preoperative optimization the form of diuresis. Lorman-Isaias placement preoperatively demonstrated elevated filling pressures large V waves. Due to the appearance of her mitral valve, I had a high suspicion for
rheumatic heart disease. I consulted both an echo cardiology patent law specialist and other cardiac surgeons, with the overall consensus that we will be prudent to pursue replacement as opposed to trying to repair this valve. She accepted the risks
of surgery and so we proceeded.
Aortic Valve Description: Bicuspid valve with left and right coronary cusp fusion, heavily calcified towards right and left coronary cusp. Annulus was relatively free of any calcium. It was mostly thickening of the leaflets and sclerosis.
Mitral Valve Description: Thickening and sclerosis of the posterior leaflet of the mitral valve with fusion of the anterolateral commissure consistent with rheumatic heart disease.
Findings: Her left ventricular ejection fraction preoperatively was approximately 45% with no regional wall motion abnormalities. The ventricle was mildly dilated. Her left atrium was significantly dilated. Her left ventricular ejection fraction
posterior 3 on 5 dobutamine is approximate 55%. There were no new regional wall motion abnormalities. Her aortic valve was fused at the left right coronary cusp and heavily sclerotic. This was excised and replaced with a 25 mm bioprosthesis using
a total of 14 nonpledgeted 2 Ethibond sutures. The mitral valve was also sclerotic and given the likely pathology, I felt it was not prudent to try and repair of the valve. This was replaced and a chordal sparing manner we located in the anterior
leaflet cords the posterior annulus and securing a [address] using a total of 15 pledgeted 2 Ethibond sutures placed in an inverted fashion from LV through leaflet plicating it through annulus and through sewing cuff of the valve.
Due to her paroxysmal atrial relation a combination of encompass posterior wall isolation, as well as cryoablation of the coronary sinus and mitral lines were performed. The left atrium was massively dilated. Left atrial appendage was verified to
be free of any thrombus or debris preoperatively and found to be totally occlusive postoperatively with a 40 mm clip. After a very short period of AV pacing, she regained sinus rhythm and remained that way postoperatively. She did not require any
blood products. We were able to scavenged approximately 250 cc of Cell Saver from the field which was auto transfused back to the patient after being washed. Mean gradient across the new aortic valve was 3 mmHg and mean gradient across the mitral
valve was 2 mmHg at the conclusion of the case.
Ablation Lines:
1. Box lesion to posterior LA wall
2. NANCY lesion + NANCY Exclusion + Division of Ligament of Ba
3. Coronary sinus lesion
4. Posterior mitral annular line toward P2/P3
Specimen(s):
1. Aortic valve leaflets
2. Parts of the anterior leaflet with some of the anterior leaflet cords the mitral valve
Prosthesis:
1. 40mm NANCY Clip
2. 25 mm Saunders Inspiris Resilia aortic valve, serial #[id number]
3. 27 mm Saunders Mitris Resilia mitral valve, serial #[id number]
Description of Procedure: The patient was taken to the operating room. Their identity and procedure to be performed were verified and they were positioned supine on the operating table. Induction via general anesthesia with endotracheal intubation
was performed and central venous access and arterial monitoring were inserted. A preoperative transesophageal echocardiogram was performed to assess cardiac function and valvular function. The patient was then prepped and draped from chin to feet in
a sterile fashion. A preoperative time-out was performed with all members of the team present. A midline chest incision was performed along with median sternotomy. The innominate vein was isolated. Full heparinization was given (a total of 42
units). We created a pericardial well. The aortic cannulation site was chosen where it was soft, pliable, and free of calcium. Cannulation was performed with an arterial cannula in the ascending aorta, angled metal tip cannular in the superior vena
cava and straight bendable cannula in the inferior vena cava. The arterial cannula line had an appropriate bounce and correlating pressures. Next, a root vent/antegrade cannula was inserted into the ascending aorta. The ACT was confirmed to be over
400 and retrograde autologous priming was performed before commencing cardiopulmonary bypass. A retrograde coronary sinus catheter was placed under TONJA and manual guidance to the right atrium into the coronary sinus. Next these superior vena cava
from the right pulmonary artery and the oblique sinus was developed. Using the encompass clamp, 3 successful pairs of ablation were performed isolating the posterior wall while on cardiopulmonary bypass. The pulmonary artery was
away from the aorta to facilitate a clamp site. Sondergaard�s groove was developed. The aortic cross-clamp was placed after decreasing the flow on the bypass and mean arterial pressure. A total of 1.2L initial dose of antegrade and
retrograde Del-Nido cardioplegia solution was given and planned for re-dosing every 75 minutes as necessary. There was rapid electro-mechanical arrest of the heart at 600 cc of cardioplegia. The left ventricle was observed for distention on
echocardiogram and manual palpation. Cold slush was placed into a lap on the RV and we systemically cooled to 34 degrees centigrade. Carbon dioxide was used to flood the field. At this point the heart was medialized and the ligament of Ba was
divided. Left atrial appendage tip was then resected and the encompass clamp was passed through the left atrium down to the left superior pulmonary vein. 2 successful pairs of ablation were performed here. The appendage was then sized to a 40 mm
clip which was deployed flush to the base.
We manually identified the location of the right coronary take off. An aortotomy was made approximately 2cm above the sinotubular junction. The location of both left and right coronary vessels were visualized in the root.additional cardioplegia was
given direct ostial the first with the left main and additional down the right coronary ostium. The leaflets of the aortic valve were excised and sent for pathological assessment.
Next, the mitral valve was accessed via the left atrium followed by valve analysis. It was sclerotic mostly towards the posterior leaflet heading into the anterior lateral commissure which was fused. I then used cryo in order to create the
coronary sinus lesion after removing the retrograde coronary sinus catheter followed by the mitral annular line. The mitral valve was replaced as described above. The left ventricular vent was repositioned across the mitral valve into the left
ventricular and the left atrium was closed with a 3-0 prolene.
I turned my attention back toward the root. A total of 14 Non-pledgeted 2-0 ethibond inverted annular sutures were placed [id number] circumferentially. These were brought through the sewing cuff of the prosthetic valve which as then parachuted
into place. The left and right coronary ostia were visualized and were unobstructed by the valve. A Cor-Knot device was used to secure the annular sutures. The valve was inspected and was well seated. The aortotomy was approximated with 4-0 prolene
in two layers.
De-airing maneuvers were performed and temporary atrial and ventricular pacing wires were placed at the SVC/RA junction and base of the right ventricle, respectively. The patient was placed in a Trendelenburg position and flows on bypass were
lowered. The aortic cross clamp was removed and flows were slowly brought back up. The left atrial suture line was hemostatic. Transesophageal echocardiography revealed no paravalvular leak with well-seated aortic and mitral prostheses with normal
excursion of the leaflets and ventricular function was normal and somewhat improved on dobutamine. Once de-airing was satisfactory the left ventricular and root vents were removed. After verifying acceptable parameters, we initiated weaning from
cardiopulmonary bypass. Once we were off cardiopulmonary bypass, the venous cannulas was clamped and removed sequentially. A test dose of protamine was administered and the patient was monitored for any adverse reaction before resuming protamine.
Once half of the protamine dose was delivered, pump suckers were turned off and the systolic blood pressure was lowered for aortic decannulation. The aortic cannula was removed and purse strings were tied down. All cannulation sites were oversewn
with a 4-0 prolene. The left atrial and aortic suture lines were inspected and hemostasis was confirmed. Mediastinal hemostasis was obtained. Two #24 Americo drains were placed within the pericardium. The sternum was approximated with 4 #7 single and
3 #8 double stainless steel wires. Fascia was approximated with #1 vicryl suture. The subcutaneous, dermis and epidermis were closed in layers in a running fashion. The skin wound was cleansed and dressed.
All instrument, sponge, and needle counts were confirmed to be correct x 2 at the end of the operation. The patient was transferred to the cardiac intensive care unit in critical but stable condition.
I, Dr. London Mcguire, was present, scrubbed for, and performed all critical elements of this procedure.
London Mcguire MD, MS
Cardiothoracic Surgeon
[facility]
This dictation was created using the muzu tv dictation system. Please excuse any grammatical, typographical, or 'sound alike' errors
--- NOTE | 2024-07-04 11:30 | PTCARENOTE ---
received pt from [facility]. Pt NSR w/ prolonged QT per nuclear monitoring technician. HR 80, A/V wires set to DDD 30 10, ABP 90s/70s, PAP 30/16, CVP 7-9, CI 1.97, CO 3.60, B/L LE trace edema, palpable pulses, pt intubated w/ 8.0 ET tube at 24, Vent set to SIMV 16 450
5-5, 60%, pox 96%, Ct x2 draining minimal red blood, hypoactive bs, [place]ledo draining clear, yellow urine, sternal incision approx. w/ surgical glue. RIJ cordis w/ SWAN 45, piv x2 flush easily. lines zeroed and flushed, s/p EKG and labs obtained
Levo 2
dobut 5
Precedex 0.5
[2024-07-04 11:42] LABS: Glucose - Point of Care 74 mg/dl (70-99)
[2024-07-04 11:52] LABS: B.E. -3.6 mmol/L; HCO3 22.7 mmol/L (21-28); Ionized Calcium 1.27 mMOL/L (1.15-1.33); O2 Saturation % 98.3 % (94-98); PCO2 45 mmHg (32-35); PO2 115 mmHg (83-108); Potassium 3.6 mMOL/L (3.5-5.1); Sodium 138 mMOL/L (136-145); pH 7.31 (7.35-7.45)
[2024-07-04 11:57] LABS: Mixed Venous O2 Saturation 79.8 %
[2024-07-04 12:06] LABS: INR 1.57; PT 18.6 Sec (11.4-14.6)
[2024-07-04 12:07] LABS: APTT 36.6 Sec (23.4-35.0)
[2024-07-04] MEDS: KCL 50 IV ×2 (12:09→13:16)
[2024-07-04 12:12] LABS: Glucose - Point of Care 89 mg/dl (70-99)
[2024-07-04] MEDS: NOVOLIN R INSULIN INFUSION 100 IV (12:13)
[2024-07-04] MEDS: ANCEF 10 IV ×2 (12:15)
[2024-07-04] MEDS: NSS 500 IV (12:15)
[2024-07-04 12:31] LABS: Blood Urea Nitrogen 16 mg/dl (7-17); Estimated Creatinine Clearance 77 ml/min; Glucose 77 mg/dl (70-99); Magnesium 3.5 mg/dl (1.6-2.3)
--- NOTE | 2024-07-04 12:32 | PTCARENOTE ---
dr. padilla at bedside, labs reviewed, instructed to decrease Dobutamine from 5 to 3
--- NOTE | 2024-07-04 12:32 | W.PN.CD ---
Addendum entered and electronically signed by Bertram Garcia MD 07/04/24 17:11:
I saw and examined the patient.
The STRIPPER LATEX's note was reviewed and I agree with the note.
Comment: 68 Hungarian speaking female with bicuspid aortic valve with severe symptomatic aortic stenosis/aortic insufficiency, rheumatic moderate mitral regurgitation, paroxysmal atrial fibrillation (on Eliquis, last dose 06/28/24), HFpEF, mild
nonobstructive CAD and hypothyroidism, who is here for cardiac optimization for upcoming valve surgery 07/04/24. She is now s/p AVR and MVR.
- follow tele, was in junctional rhythm post op
Original Note:
Today's Communication / Plan
-
Follow telemetry
Postoperative management per CT surgery
Impression / Plan
-
BACKGROUND: 68 Hungarian speaking female with bicuspid aortic valve with severe symptomatic aortic stenosis/aortic insufficiency, rheumatic moderate mitral regurgitation, paroxysmal atrial fibrillation (on Eliquis, last dose 06/28/24), HFpEF, mild
nonobstructive CAD and hypothyroidism, who is here for cardiac optimization for upcoming valve surgery 07/04/24. She had a RHC with PCWP 30, received IV Lasix yesterday.
Mixer Driver: Dr. Villareal ([facility])
Severe aortic stenosis s/p 25 mm Saunders Inspiris Resilia (25 mm) on 07/04/[address] Mcguire
Moderate�severe rheumatic mitral regurgitation s/p Saunders mitral wrist Resilia (27 mm)
-Pre-LVEF 45%, post LVEF 55% on dobutamine without RWMA
-At conclusion of case, AV mean gradient 3 mmHg, MV 2 mmHg
-Required no blood products, 250 mL Cell Saver
-Sinus on EKG with prolonged QT, EKG in a.m.
HFpEF, chronic
-RHC with PCWP 30 on admission -> furosemide
-Trend daily weight, I/O, and BMP
-Heart failure education
Paroxysmal atrial fibrillation
-Left atrial maze (RF ablation and cryo) with 40 mm NANCY clip during surgery
-Sinus rhythm on EKG
-Oral anticoagulation: typically on Eliquis, last dose 06/28/24, resumption per CT surgery
Leukocytosis, perhaps reactive, follow
Chest pain, resolved with discontinuation of [place]
SUBJECTIVE:
Intubated and sedated on mechanical ventilation.
Operative notes reviewed.
DATA:
Right heart catheterization, 06/30/2024:
1. Elevated biventricular filling pressures with moderate post-capillary pulmonary hypertension and reduced cardiac index
HEMODYNAMIC DATA
SBP 168/80 (mean 115)
RA 15
RV 51/12 (EDP 16)
PA 46/31 (mean 37)
PCWP 30 (v-waves to 38)
CO/CI 3.46/1.90
SVR 2312
PVR 2.0
Physical Exam
Vital Signs/Labs
Vital Signs
Temp Pulse Resp BP Pulse Ox
95.6 F L 81 16 143/89 96
07/04/24 12:00 07/04/24 12:05 07/04/24 12:05 07/04/24 06:02 07/04/24 12:05
07/03/24 07/04/24 07/05/24
06:59 06:59 06:59
Actual Weight 80.1 kg 79.8 kg
07/04/24 11:37
PT 18.6 Sec (11.4-14.6) H 07/04/24 11:37
INR 1.57 07/04/24 11:37
APTT 36.6 Sec (23.4-35.0) H 07/04/24 11:37
Magnesium 3.5 mg/dl (1.6-2.3) H 07/04/24 11:37
LAB Results
07/01/24 07/02/24
14:43 10:51
Troponin I < 0.012 < 0.012
Physical Exam
Constitutional: No acute distress and Comfortable
EENT: Anicteric and Moist mucous membranes
Cardiovascular: Rhythm & rate is regular, Pedal edema is absent and S1S2 is normal
Respiratory: Lungs clear to auscul.
GI: Soft and Distention absent
Neuro/Psych: Other (sedated)
Other: Skin (warm and dry without edema)
Data Reviewed
-
Date of Service: July 04, 2024
EKG: Report Reviewed by me
Old Records: Reviewed
--- NOTE | 2024-07-04 12:51 | PTCARENOTE ---
CT FIELD SUPPORT ENGINEER PA made aware of pts junctional rhythm EKG obtained
[2024-07-04 12:58] LABS: Hematocrit 32.8 % (37.0-47.0); Hemoglobin 11.1 g/dL (12.0-16.0); Platelet Count 137 10^3/uL (130-400)
[2024-07-04 13:03] LABS: Glucose - Point of Care 126 mg/dl (70-99)
[2024-07-04] MEDS: NEURONTIN PO ×3 (13:15→21:02)
[2024-07-04] MEDS: TYLENOL PO ×2 (13:16→21:02)
[2024-07-04] MEDS: ALBUMIN 5% 250 IV (13:34)
[2024-07-04] MEDS: CARDENE 200 IV (13:53)
[2024-07-04 13:56] LABS: Glucose - Point of Care 113 mg/dl (70-99)
--- NOTE | 2024-07-04 14:46 | PTCARENOTE ---
dr. padilla at bedside adjusted epicardial wire settings to AAI 82 and 10
[2024-07-04 14:54] LABS: Glucose - Point of Care 104 mg/dl (70-99)
[2024-07-04] MEDS: PACERONE PO (15:33)
[2024-07-04 15:38] LABS: B.E. -2.5 mmol/L; HCO3 21.7 mmol/L (21-28); Hematocrit 35.4 % (37.0-47.0); Hemoglobin 12.3 g/dL (12.0-16.0); O2 Saturation % 97.6 % (94-98); PCO2 35 mmHg (32-35); PO2 88 mmHg (83-108); Platelet Count 162 10^3/uL (130-400); Potassium 4.4 mMOL/L (3.5-5.1)
--- NOTE | 2024-07-04 15:49 | PTCARENOTE ---
pt extubated @ 1546 with no incident able to follow commands and state name and pox 99% 6L NC
[2024-07-04 15:57] LABS: Glucose - Point of Care 123 mg/dl (70-99)
[2024-07-04] MEDS: OFIRMEV 100 IV (16:22)
[2024-07-04] MEDS: LOW STRENGTH ASPIRIN 81 MG PO (17:07)
[2024-07-04] MEDS: ANCEF 5 IV (17:11)
[2024-07-04] MEDS: TORADOL 15 MG IV (17:25)
[2024-07-04 17:56] LABS: Glucose - Point of Care 108 mg/dl (70-99)
[2024-07-04] MEDS: ROXICODONE 5 MG PO (18:10)
[2024-07-04 18:31] LABS: Mixed Venous O2 Saturation 70.1 %
[2024-07-04] MEDS: SODIUM BICARBONATE 50 MEQ IV (19:47)
[2024-07-04] MEDS: SENOKOT-S PO (19:48)
[2024-07-04 20:00] LABS: Glucose - Point of Care 89 mg/dl (70-99)
--- NOTE | 2024-07-04 20:30 | PTCARENOTE ---
Patient received sleeping. Bedrest. Patient A+A+Ox3 during periods of care. No neurological deficits noted. Language barrier - Language line in room and talk with son. Patient understands basic Icelandic. No s/s of respiratory distress. No c/o
SOB. O2 at 3L via NC. SpO2 98%. No adventitious breath sounds noted. Epicardial Temporary Pacemaker - AV Wires - AAI Rate 82, Output 10, Sensitivity 0.5. Initially, A-Pacing. Heart rate now 90's - Sinus Rhythm - No pacer spikes noted. Patient
with no c/o chest pain, pressure or discomfort. Dobutamine gtt 2 mcq/kg/min (4.8 ml/hr) (Wt. 79.8 kg.) C.I. 2.04. Abdomen soft, round, nontender. Hypoactive to normoactive bowel sounds. No BM. No c/o nausea. No vomiting. Sebastian catheter -
Temperature sensing - Light sakina, yellow urine - Outputs as documented. Right I.J. Cordis with [place] Isaias catheter. Left brachial arterial line. A-Line, PAP, CVP - Pressure bag/Saline flush - Flush without difficulty - Zeroed and calibrated -
Waveforms within normal limits. Sternal incision - Intact - Surgical adhesive - Open to air. Per PA order, Rod Delgado PA-C, 1 AMP Sodium Bicarbonate 50 mEq IV administer via Right I.J. Cordis. Assessment as documented.
[2024-07-04] MEDS: ZOFRAN 4 MG IV (21:26)
[2024-07-04] MEDS: DILAUDID 0.25 MG IV (21:38)
--- NOTE | 2024-07-04 21:55 | PTCARENOTE ---
C.O. 4.27 C.I. 2.33 Per PA order - Dobutamine gtt rate decreased to 1.5 mcq/kg/min (3.6 ml/hr). Patient given CHG bath and linens changed. Patient with c/o nausea and pain. Zofran 4mg IV given at 2125. IV Dilaudid 0.25 mg administered at
2137. Positive relief provided. Patient now sleeping without difficulty. Assessment as documented.
[2024-07-04 22:02] LABS: Glucose - Point of Care 102 mg/dl (70-99)
[2024-07-04] MEDS: DILAUDID 0.5 MG IV (22:52)
[2024-07-05] VITALS (31 sets, daily range): BP systolic 77–122; BP diastolic 37–80; PULSE 75; O2SAT 94–95; BMI 33.7; BMI 33.1
--- NOTE | 2024-07-05 | PTCARENOTE ---
C.O. 4.39 C.I. 2.40 Per PA, Dobutamine gtt rate decreased to 1 mcq/kg/min (2.4 ml/hr). IV Dilaudid 0.5 mg given for c/o 06/30 sternal pain - Positive relief provided. Patient's son now at bedside. No further changes from previous assessment.
[2024-07-05 00:01] LABS: Glucose - Point of Care 85 mg/dl (70-99)
[2024-07-05] MEDS: ANCEF 5 IV ×2 (01:14→08:36)
[2024-07-05] MEDS: DILAUDID 0.25 MG IV (01:22)
--- NOTE | 2024-07-05 01:45 | PTCARENOTE ---
Patient with c/o 5/10 pain - Sternal. Son at bedside. IV Dilaudid 0.25 mg administered. C.O. 4.65 C.I. 2.54 Per PA, Dobutamine gtt rate decreased to 0.5 mcq/kg/min (1.2 ml/hr). Patient now resting. Assessment as documented.
[2024-07-05 02:11] LABS: Glucose - Point of Care 100 mg/dl (70-99)
--- NOTE | 2024-07-05 02:15 | PTCARENOTE ---
Patient's health information technologist displayed 6 beat VT. Patient sleeping without difficulty. Assessment/Interventions as documented.
[2024-07-05] MEDS: DILAUDID 0.5 MG IV (03:14)
[2024-07-05 03:21] LABS: Glucose - Point of Care 105 mg/dl (70-99)
--- NOTE | 2024-07-05 03:33 | W.PN.CT ---
Today's Communication / Plan
-
Plan:
-No major issues overnight. Hemodynamically and neurologically intact
-Successfully extubated on 07/04/24 @ 1630
-Weaned off Levophed gtt overnight, Dobutamine slowly weaned to off @ 0400 (noticed intermittent tachycardia while on dobutamine), remains on insulin gtt per protocol
-Currently in NSR @ 80 bpm, had been in junctional rhythm immediately postop and was a-paced @ 80 bpm. Amiodarone and Lopressor currently on hold
-Last CI 2.1 (with dobutamine off; was 2.93 on 0.5 mcg/kg of dobutamine) , MVO2 68.5% , u/o since 1160 mL
-Re-check index prior to d/c of swan and a-line
-Kept swan and a-line in case requires resumption of dobutamine
-Kept [place]ledo catheter to monitor I/O's
-Will transfer to [facility] phase once of insulin gtt
-Monitor chest tube drainage: 2med 145/235
-CXR this AM looks clear. F/U official report
-Cont. current meds (ASA, Lipitor, holding Amiodarone and Lopressor; will resume Eliquis on POD#4)
-Maintain cordis
-Maintain temporary PW (will cut likely tomorrow)
-Wean off of O2 as tolerated
-Encourage use of IS
Assessment / Plan
-
Assessment:
-S/P Sternotomy/Surgical aortic valve replacement [25 mm bioprosthesis]/Surgical, chordal sparing, mitral valve replacement [27 mm bioprosthesis]/Left atrial maze [RF ablation and cryo]/ Left atrial appendage exclusion [40 mm clip], by Dr. Mcguire,
07/04/24, pod#1
-Moderately severe aortic valve stenosis, bicuspid valve with heavy calcification and sclerosis
-Severe aortic valve insufficiency
-Moderately severe mitral valve insufficiency with sclerosis and thickening particularly of the posterior leaflet at the anterior lateral commissure, resembles a rheumatic valve, type IIIa
-Paroxysmal atrial fibrillation�
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
-Moderate MR�
-Severely left atrial dilatation
-LVEF 47% per echo 06/13/24, EF 40% per intraop TONJA
-Acute on chronic systolic CHF
-Class 1 obesity (BMI 32.4)
-Hypothyroidism�
-Goiter�
-DJD�
-Lymphedema
-Chronic low back pain�
-Acute postop blood loss/Anemia (stable without transfusion
-Acute postop atelectasis
-Intraop and postop cardiogenic shock (CI 1.64)
-Acute postop hypovolemia with subsequent hypervolemia
-Acute postop junctional rhythm @ 63 bpm
Discussed patient care with: Cardiology, Nursing, Respiratory Therapy, Pharmacy and Care Team
Subjective
Procedure
S/P Sternotomy/Surgical aortic valve replacement [25 mm bioprosthesis]/Surgical, chordal sparing, mitral valve replacement [27 mm bioprosthesis]/Left atrial maze [RF ablation and cryo]/ Left atrial appendage exclusion [40 mm clip], by Dr. Mcguire,
07/04/24
-
Date of Service: July 05, 2024
Pt c/o incisional pain, otherwise feels well
Objective Data
-
PT 18.6 Sec (11.4-14.6) H 07/04/24 11:37
INR 1.57 07/04/24 11:37
APTT 36.6 Sec (23.4-35.0) H 07/04/24 11:37
Vital Signs
Vital Signs
Temp Pulse Resp BP Pulse Ox
100.1 F 84 17 119/77 98
07/05/24 03:30 07/05/24 03:30 07/05/24 03:30 07/05/24 03:30 07/05/24 03:30
CT Intake/Output/Weight
07/04/24 07/04/24 07/05/24
06:59 18:59 06:59
Intake Total 265 / 541 974.7 / 1580.2 605.5 / 1580.2
Output Total 805 / 1280 475 / 1280
Balance 265 / 541 169.7 / 300.2 130.5 / 300.2
SaO2: 98 (2L )
Physical Exam
-
General: Awake, Oriented and AOx3
Cardiovascular: Regular rate & rhythm, No Murmurs, No Rub and No Gallop
Respiratory: Decreased Breath Sounds (at bases, otherwise clear)
Sternum: Stable
Incision: Clean, Dry, Intact and Dressing Intact
Extremities: Other (+trace edema)
Data Reviewed
-
Lab Results: Results Reviewed
Medications: Active Meds Reviewed
Chest X-Ray: Report Reviewed and Image Reviewed
ECG: Report Reviewed and Image Reviewed
[2024-07-05 04:00] LABS: Mixed Venous O2 Saturation 68.5 %
--- NOTE | 2024-07-05 04:00 | PTCARENOTE ---
Patient sleeping. Patient A+A+Ox3 during periods of care. No neurological deficits noted. Patient's son staying in room. C.O. 5.37 C.I. 2.93. SVR 1102 CVP 13 PAP 35/20 (26). Per PA order, Dobutamine gtt off. AM lab work collected and sent.
EKG completed. Assessment/Interventions as documented.
[2024-07-05 04:05] LABS: Hematocrit 31.6 % (37.0-47.0); Hemoglobin 11.3 g/dL (12.0-16.0); Mean Corp Hgb Conc. 35.8 g/dL (33.0-37.0); Mean Corpuscular Hgb 29.7 pg (27.0-31.0); Mean Corpuscular Volume 82.9 fL (81.0-99.0); Platelet Count 177 10^3/uL (130-400); Red Blood Cell Count 3.81 10^6/uL (4.20-5.40); Red Cell Dist. Width 13.2 % (11.5-14.5); White Blood Cell Count 15.2 10^3/uL (4.8-10.8)
[2024-07-05 04:12] LABS: INR 1.15; PT 14.6 Sec (11.4-14.6)
[2024-07-05 04:19] LABS: Glucose - Point of Care 91 mg/dl (70-99)
[2024-07-05 04:27] LABS: Blood Urea Nitrogen 17 mg/dl (7-17); Calcium 8.6 mg/dl (8.4-10.2); Carbon Dioxide 22 mmol/L (22-30); Chloride 104 mmol/L (98-107); Estimated Creatinine Clearance 90 ml/min; Glucose 97 mg/dl (70-99); Magnesium 2.2 mg/dl (1.6-2.3); Potassium 4.2 mmol/L (3.5-5.1); Sodium 139 mmol/L (135-145); eGFR > 60.00
[2024-07-05 04:57] LABS: Glucose - Point of Care 104 mg/dl (70-99)
[2024-07-05] MEDS: ROXICODONE 5 MG PO ×3 (05:02→20:24)
[2024-07-05] MEDS: TYLENOL 1000 MG PO ×3 (05:02→22:08)
[2024-07-05] MEDS: SYNTHROID 100 MCG PO (05:02)
[2024-07-05 06:19] LABS: Glucose - Point of Care 98 mg/dl (70-99)
[2024-07-05] MEDS: TORADOL 15 MG IV (06:34)
[2024-07-05 08:04] LABS: Glucose - Point of Care 106 mg/dl (70-99)
[2024-07-05] MEDS: NSS IV (08:15)
--- NOTE | 2024-07-05 08:16 | W.PN.ANS.POP ---
Anesthesia Post Operative
- Anesthesia Post Op Note
Vital Signs Stable-See Nursing Note: Yes
Airway Patent: Yes
Adequate Pain Control: Yes
Change in Mental Status: No
Current Postoperative Nausea & Vomiting: No
Anesthesia Complications: No
General Anesthetic Recall: No
Unplanned Admission: No
Post Op Hydration Adequate: Yes
- -
patient resting comfortably in bed. No comments or complaints at this time.
--- NOTE | 2024-07-05 08:26 | W.PN.INTV ---
Today's Communication / Plan
Recommendations
Dobutamine continues
Tolerated extubation
Insulin drip
Monitor chest tube output
If delined and insulin drip discontinued and floor supervisor will sign off
Assessment
-
Severe aortic stenosis/aortic regurgitation-progressive/symptomatic-signs of volume overload
Electively admitted 06/30/2024 for optimization for proposed surgery 07/04/2024
Status post AVR-25 mm bioprosthetic, MVR-27 mm bioprosthetic, left atrial maze/RF ablation and cryo, left atrial appendage exclusion-07/04/2024-Dr. Mcguire
Mild leukocytosis
Citizen Of [place] speaking only-son translates
Conditions present prior admission:
Paroxysmal atrial fibrillation
Aortic stenosis
Aortic regurgitation
Hypothyroidism
Goiter
DJD
Chronic low back pain
Hypothyroidism
Plan:
Remains critically ill on insulin drip and dobutamine
Tolerated extubation
Wean FiO2
Encourage incentive spirometry
Increase activity
Aspiration precautions
Follow chest x-ray
Pulmonary artery catheter and arterial line per surgery-will be kept as dobutamine resumption will occur
Pressors have been weaned
Amiodarone and Lopressor currently on hold
Continue to monitor chest tube output
Follow hemoglobin
Continue to follow platelet count and coags
Transfuse blood product as needed
CT surgery following chest tubes as well
Preoperative the patient was status post right heart catheterization 06/30/2024:Elevated biventricular filling pressures with moderate post-capillary pulmonary hypertension and reduced cardiac index
Follow blood sugar
Insulin drip continues per protocol
Early nutrition
Early mobilization
DVT prophylaxis
Reviewed with son at the bedside
Critical care statement: A total of 38 minutes of critical care time was provided for this patient today. This includes management of insulin drip, dobutamine drip,,arterial blood gases, pressors, of unstable vital signs, evaluation of the patient
at bedside, reviewing the patient's pertinent medical records including radiographs, microbiology, laboratory evaluations, and discussion with primary team and critical care nursing.
Data:
Chest x-ray 07/04/2024-endotracheal tube tip 2.2 cm above chino, postoperative changes
Subjective Dataa
Subjective Data
Date of Service:
Date of Service: July 05, 2024
Chief Complaint: Cuprous Chloride Helper Follow Up (Severe aortic valve disease), Pulmonary Follow Up and Vent Management Follow Up
Subjective:
Tolerated extubation, son used as risk specialist, no complaints of shortness of breath, pain controlled, no abdominal pain
Review of Systems
General: Other (Per HPI)
Objective Data
Data Reviewed
Vital Signs / I&O / Oxygen:
Vital Signs
Temp Pulse Resp BP Pulse Ox
100.2 F 78 18 116/75 97
07/05/24 06:30 07/05/24 06:30 07/05/24 06:30 07/05/24 06:30 07/05/24 06:30
Intake and Output
07/04/24 07/05/24 07/06/24
06:59 06:59 06:59
Intake Total 541 / 541 1703.0 / 1703.0
Output Total 1450 / 1450
Balance 541 / 541 253.0 / 253.0
SaO2 [CPAP] 98
SaO2 [SIMV] 96
SaO2 97
Nasal Cannula flow liters per 2
minute
Physical Exam
General: Respiratory Distress (n) and Comfortable
HEENT: Normocephalic, Anicteric and Moist Mucous Membranes
Cardiovascular: Regular Rhythm and Murmur
Respiratory: Clear, Non-Labored Respirations and ET Tube
GI: Soft, Non Distended and Non Tender
Neurology: Awake, Alert, No Motor Deficits and Other
Skin: Warm, Good Color, Cyanosis (n) and Jaundice (n)
Labs/Micro/Reports
Lab Data
07/05/24 03:47
07/05/24 03:47
Laboratory Results
07/04/24 07/04/24 07/04/24
11:37 11:41 15:22
PT 18.6 H
INR 1.57
APTT 36.6 H
pH 7.31 L 7.40
pCO2 45 H 35
pO2 115 H 88
HCO3 22.7 21.7
O2 Delivery Level
07/05/24
03:47
PT 14.6
INR 1.15
APTT
pH
pCO2
pO2
HCO3
O2 Delivery Level
[2024-07-05] MEDS: PROTONIX 40 MG PO (08:36)
[2024-07-05] MEDS: SENOKOT-S 1 TABLET PO ×2 (08:36→20:25)
[2024-07-05] MEDS: FLEXERIL 5 MG PO (08:36)
[2024-07-05] MEDS: MAGNESIUM OXIDE 500 MG PO ×2 (08:36→20:25)
[2024-07-05] MEDS: BACTROBAN 2% OINTMENT 1 APPLIC NASAL ×2 (08:36→20:24)
[2024-07-05] MEDS: LOW STRENGTH ASPIRIN 81 MG PO (08:36)
[2024-07-05] MEDS: NEURONTIN 100 MG PO ×3 (08:37→22:07)
[2024-07-05] MEDS: LIPITOR 10 MG PO (08:37)
[2024-07-05] MEDS: LIDOCAINE 4% PATCH 1 PATCH TOPICAL (08:37)
--- NOTE | 2024-07-05 08:37 | W.PN.CD ---
Today's Communication / Plan
-
- Hold Amiodarone and Toprol
- No need for PPM at this time
- Continue telemetry
Impression / Plan
-
BACKGROUND: 68 Luxembourgish speaking female with bicuspid aortic valve with severe symptomatic aortic stenosis/aortic insufficiency, rheumatic moderate mitral regurgitation, paroxysmal atrial fibrillation (on Eliquis, last dose 06/28/24), HFpEF, mild
nonobstructive CAD and hypothyroidism, who is here for cardiac optimization for upcoming valve surgery 07/04/24. She had a RHC with PCWP 30, received IV Lasix yesterday.
Case Therapist: Dr. Villareal ([facility])
Severe aortic stenosis s/p 25 mm Saunders Inspiris Resilia (25 mm) on 07/04/[address] Mcguire
Moderate�severe rheumatic mitral regurgitation s/p Saunders mitral wrist Resilia (27 mm)
-Pre-LVEF 45%, post LVEF 55% on dobutamine without RWMA
-At conclusion of case, AV mean gradient 3 mmHg, MV 2 mmHg
-Required no blood products, 250 mL Cell Saver
-Sinus on EKG with prolonged QT, EKG in a.m.
HFpEF, chronic
-RHC with PCWP 30 on admission -> furosemide
-Trend daily weight, I/O, and BMP
-Heart failure education
Paroxysmal atrial fibrillation
-Left atrial maze (RF ablation and cryo) with 40 mm NANCY clip during surgery
-Sinus rhythm on EKG
-Some bradycardia - sinus without any pauses. As needed atrial pacing noted. Junctional rhythm noted post op but resolved.
-Oral anticoagulation: typically on Eliquis, last dose 06/28/24, resumption per CT surgery
-Holding Amiodarone and Lopressor.
Leukocytosis, perhaps reactive, follow
Chest pain, resolved with discontinuation of [place]
SUBJECTIVE:
extubated. Off the Levophed drip.
DATA:
Right heart catheterization, 06/30/2024:
1. Elevated biventricular filling pressures with moderate post-capillary pulmonary hypertension and reduced cardiac index
HEMODYNAMIC DATA
SBP 168/80 (mean 115)
RA 15
RV 51/12 (EDP 16)
PA 46/31 (mean 37)
PCWP 30 (v-waves to 38)
CO/CI 3.46/1.90
SVR 2312
PVR 2.0
Physical Exam
Vital Signs/Labs
Vital Signs
Temp Pulse Resp BP Pulse Ox
98.9 F 75 19 109/66 98
07/05/24 08:00 07/05/24 08:30 07/05/24 08:30 07/05/24 08:00 07/05/24 08:30
07/04/24 07/05/24 07/06/24
06:59 06:59 06:59
Actual Weight 79.8 kg 83.6 kg
07/05/24 03:47
07/05/24 03:47
PT 14.6 Sec (11.4-14.6) 07/05/24 03:47
INR 1.15 07/05/24 03:47
APTT 36.6 Sec (23.4-35.0) H 07/04/24 11:37
Magnesium 2.2 mg/dl (1.6-2.3) 07/05/24 03:47
LAB Results
07/02/24
10:51
Troponin I < 0.012
Physical Exam
Constitutional: No acute distress and Comfortable
EENT: Anicteric and Moist mucous membranes
Cardiovascular: Rhythm & rate is regular and Pedal edema is absent
Respiratory: Respiratory effort normal and Lungs clear to auscul.
GI: Soft, Non tender and Normal bowel sounds
Neuro/Psych: Alert and Oriented
Data Reviewed
-
Date of Service: July 05, 2024
Medical Decision Making: Reviewed Test Results, Test Interpretation and Review of Case with other Provider
EKG: Tracing Personally Visualized and interpreted
Labs: Labs Reviewed by me
Old Records: Reviewed
[2024-07-05 08:44] LABS: ACT+ - POC 104 Seconds (82-134)
[2024-07-05 08:44] LABS: ACT+ - POC 509 Seconds (82-134)
[2024-07-05 08:44] LABS: ACT+ - POC 511 Seconds (82-134)
[2024-07-05 08:44] LABS: ACT+ - POC 528 Seconds (82-134)
--- NOTE | 2024-07-05 08:45 | PTCARENOTE ---
Assumed care of patient at 0700. Pt is awake, alert, and oriented. Pt with complaints of sternal and back pain, PRN Flexeril administered. Pt remains SR with HR 70's. BP 102/59 MAP 75. PA 30/12, CVP 7. Epicardial AV wire in place, set to AAI
45/10/0.5. Pulses palpable. Pt with +2 LE edema. Pulse oximetry 98% on 2L. Mediastinal chest tubes x2 in place, no sign of air leak or crepitus, drainage dark red in color. Pt tolerating sips of water and PO medication. Sebastian catheter in place
draining yellow urine. Midsternal incision approximated and ELAINE. Right IJ cordis in place with Stewart-Isaias catheter at 45cm. Pt remains on insulin gtt per order.
--- NOTE | 2024-07-05 10:00 | PTCARENOTE ---
Nazlini-Isaias catheter d/c'd per order. Sebastian catheter removed at 0915. Left brachial A line removed by CT NAVAL AIRCREWMAN MECHANICAL, Debra. Pt assisted OOB in chair with cardiac rehab.
[2024-07-05 10:05] LABS: Glucose - Point of Care 96 mg/dl (70-99)
[2024-07-05 12:44] LABS: Glucose - Point of Care 91 mg/dl (70-99)
--- NOTE | 2024-07-05 13:30 | PTCARENOTE ---
Pt was SR with HR 60's-70's. BP 80's/60's. Discussed with CT LOCK CORNER MACHINE OPERATOR, Debra, pt now being 100% A paced at rate of 80. BP now 93/57 MAP 69.
[2024-07-05] MEDS: FERRLECIT 110 MG IV (14:55)
--- NOTE | 2024-07-05 16:00 | PTCARENOTE ---
Pt with no changes in assessment. Pt remains 100% V paced with HR 80. BP 97/66 MAP 76. Pulse oximetry 93% on room air.
--- NOTE | 2024-07-05 20:00 | PTCARENOTE ---
Received pt from [facility]. pt resting comfortably in bed. pt is AAOx4, states pain is 6/10, see MAR. 100% A paced on monitor. VSS. heart sounds audible, radial and DP pulses palpable, trace generalized edema with +1 ZACK, temp epicardial AV wires set
to AAI rate of 80, MA of 10 and Mv of 0.8. lungs diminished at b/l bases, spo2 91% on RA, x2 MS CT to -20 wall suction, no air leaks, no tidaling, no crepitus. + BS x4 quadrants, abdomen, round/obese, soft, non tender. pt voiding dark sakina urine.
surgical site maintained. right IJ cordis, and PIV maintained. pt washed with CHG wipes, new gown and new leads provided. pt assisted to commode and back to bed. call montilla within reach. will continue to monitor.
[2024-07-05] MEDS: SODIUM BICARBONATE 50 MEQ IV (20:25)
[2024-07-05] MEDS: CALCIUM GLUCONATE 100 IV (20:36)
[2024-07-06] VITALS (15 sets, daily range): BP systolic 81–111; BP diastolic 48–71; PULSE 76; O2SAT 98; BMI 33.7
--- NOTE | 2024-07-06 | PTCARENOTE ---
Pt assessment unchanged. bicarb and IV calcium gluconate ordered and administered. on going pain management. call montilla within reach. will continue to monitor.
[2024-07-06] MEDS: TORADOL 15 MG IV ×2 (01:30→17:37)
--- NOTE | 2024-07-06 04:00 | PTCARENOTE ---
Pt assessment unchanged. 100% A pace, VSS. on going pain management, see MAR. will continue to monitor.
--- NOTE | 2024-07-06 04:08 | W.PN.CT ---
Today's Communication / Plan
-
Plan:
-No major issues overnight. Hemodynamically and neurologically intact
-Off all drips
-BP has been soft postop, HR with intermittent sinus bradycardia, both Amiodarone and Lopressor currently on hold
-Currently in NSR @ 82 bpm, had been in junctional rhythm immediately postop, was a-paced @ 80 bpm overnight. Amiodarone and Lopressor currently on hold
-Consider d/c of chest tubes: 2med 60/150
-Cont. current meds (ASA, Lipitor, holding Amiodarone and Lopressor; will resume Eliquis on POD#4)
-Maintain cordis
-Maintain temporary PW (will cut likely tomorrow)
-Wean off of O2 as tolerated
-Encourage use of IS
-OOB into chair/ambulate
Assessment / Plan
-
Assessment:
-S/P Sternotomy/Surgical aortic valve replacement [25 mm bioprosthesis]/Surgical, chordal sparing, mitral valve replacement [27 mm bioprosthesis]/Left atrial maze [RF ablation and cryo]/ Left atrial appendage exclusion [40 mm clip], by Dr. Mcguire,
07/04/24, pod#2
-Moderately severe aortic valve stenosis, bicuspid valve with heavy calcification and sclerosis
-Severe aortic valve insufficiency
-Moderately severe mitral valve insufficiency with sclerosis and thickening particularly of the posterior leaflet at the anterior lateral commissure, resembles a rheumatic valve, type IIIa
-Paroxysmal atrial fibrillation�
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
-Moderate MR�
-Severely left atrial dilatation
-LVEF 47% per echo 06/13/24, EF 40% per intraop TONJA
-Acute on chronic systolic CHF
-Class 1 obesity (BMI 32.4)
-Hypothyroidism�
-Goiter�
-DJD�
-Lymphedema
-Chronic low back pain�
-Acute postop blood loss/Anemia (stable without transfusion
-Acute postop atelectasis
-Intraop and postop cardiogenic shock (CI 1.64)
-Acute postop hypovolemia with subsequent hypervolemia
-Acute postop junctional rhythm @ 63 bpm
-Acute postop sinus bradycardia
Discussed patient care with: Cardiology, Nursing, Respiratory Therapy, Pharmacy and Care Team
Subjective
Procedure
S/P Sternotomy/Surgical aortic valve replacement [25 mm bioprosthesis]/Surgical, chordal sparing, mitral valve replacement [27 mm bioprosthesis]/Left atrial maze [RF ablation and cryo]/ Left atrial appendage exclusion [40 mm clip], by Dr. Mcguire,
07/04/24
-
Date of Service: July 06, 2024
Pt c/o mild incisional pain, otherwise feels well
Objective Data
-
PT 14.6 Sec (11.4-14.6) 07/05/24 03:47
INR 1.15 07/05/24 03:47
APTT 36.6 Sec (23.4-35.0) H 07/04/24 11:37
Vital Signs
Vital Signs
Temp Pulse Resp BP Pulse Ox
98.5 F 80 16 99/57 95
07/06/24 00:00 07/06/24 00:08 07/06/24 00:00 07/06/24 00:09 07/06/24 00:08
CT Intake/Output/Weight
07/05/24 07/05/24 07/06/24
06:59 18:59 06:59
Intake Total 728.3 / 1723.5 153.5 / 153.5
Output Total 645 / 1475 270 / 505 235 / 505
Balance 83.3 / 248.5 -116.5 / -351.5 -235 / -351.5
SaO2: 95 (2L)
Physical Exam
-
General: Awake, Oriented and AOx3
Cardiovascular: Regular rate & rhythm, No Murmurs, No Rub and No Gallop
Respiratory: Decreased Breath Sounds (at bases, otherwise clear)
Sternum: Stable
Incision: Clean, Dry, Intact and Dressing Intact
Extremities: Other (lymphedema )
Data Reviewed
-
Lab Results: Results Reviewed
Medications: Active Meds Reviewed
Chest X-Ray: Report Reviewed and Image Reviewed
ECG: Report Reviewed and Image Reviewed
[2024-07-06 05:00] LABS: Blood Urea Nitrogen 20 mg/dl (7-17); Calcium 8.5 mg/dl (8.4-10.2); Carbon Dioxide 28 mmol/L (22-30); Chloride 100 mmol/L (98-107); Estimated Creatinine Clearance 79 ml/min; Glucose 116 mg/dl (70-99); Magnesium 2.1 mg/dl (1.6-2.3); Potassium 4.2 mmol/L (3.5-5.1); Sodium 136 mmol/L (135-145); eGFR > 60.00
[2024-07-06 05:15] LABS: Hematocrit 29.6 % (37.0-47.0); Hemoglobin 10.2 g/dL (12.0-16.0); Mean Corp Hgb Conc. 34.5 g/dL (33.0-37.0); Mean Corpuscular Hgb 30.1 pg (27.0-31.0); Mean Corpuscular Volume 87.3 fL (81.0-99.0); Mean Platelet Volume 11.2 fL (7.4-10.4); Platelet Count 141 10^3/uL (130-400); Red Blood Cell Count 3.39 10^6/uL (4.20-5.40); Red Cell Dist. Width 13.3 % (11.5-14.5); White Blood Cell Count 14.6 10^3/uL (4.8-10.8)
--- NOTE | 2024-07-06 05:33 | PTCARENOTE ---
Pt assisted OOB to commode, then to chair. CVPA change rate on temp pacer to 50. will continue to monitor.
[2024-07-06] MEDS: CALCIUM GLUCONATE 130 MG IV (06:03)
[2024-07-06] MEDS: TYLENOL 1000 MG PO ×3 (06:04→21:49)
[2024-07-06] MEDS: MYLICON 80 MG PO (06:04)
[2024-07-06] MEDS: SYNTHROID 100 MCG PO (06:04)
--- NOTE | 2024-07-06 08:00 | PTCARENOTE ---
Assumed care of patient from assistant shift supervisor RN. AAO x 3 , Sitting up in chair, looks tired. C/o generalized weakness/pain. SR on monitor, Epicardial wire to back up of AAI 50. No pacing noted. BP 90/60. Discussed with CT NETWORK TECHNICAL ANALYST. Room air 95%. Chest
tube to - 20 cm suction, No air leak or crepitus noted. Abdomen soft non tender. General anasarca noted. Plus 1-2 lower extremity edema appreciated. Plan for day discussed.
[2024-07-06] MEDS: BACTROBAN 2% OINTMENT 1 APPLIC NASAL ×2 (08:04→19:33)
[2024-07-06] MEDS: SENOKOT-S 1 TABLET PO ×2 (08:05→19:33)
[2024-07-06] MEDS: LOW STRENGTH ASPIRIN 81 MG PO (08:05)
[2024-07-06] MEDS: NEURONTIN 100 MG PO ×3 (08:05→21:49)
[2024-07-06] MEDS: PROTONIX 40 MG PO (08:05)
[2024-07-06] MEDS: MAGNESIUM OXIDE 500 MG PO ×2 (08:05→19:33)
[2024-07-06] MEDS: ROXICODONE 5 MG PO ×2 (08:05→19:34)
[2024-07-06] MEDS: LIPITOR 10 MG PO (08:05)
[2024-07-06] MEDS: ProAmatine 2.5 MG PO (08:46)
[2024-07-06] MEDS: LIDOCAINE 4% PATCH TOPICAL (08:46)
[2024-07-06 09:21] LABS: B.E. 2.3 mmol/L; HCO3 26.4 mmol/L (21-28); O2 Saturation % 97.7 % (94-98); PCO2 38 mmHg (32-35); PO2 88 mmHg (83-108); Sodium 132 mMOL/L (136-145); pH 7.45 (7.35-7.45)
[2024-07-06] MEDS: NSS IV (11:48)
--- NOTE | 2024-07-06 11:59 | CM ---
Reviewed chart. Met with Mrs. Miles and spoke with her son-in-law via phone to review discharge plans. He states prior to admission he states she resides with her daughter and son-in-law in a two story home with three steps to enter. He states she
has a full flight of steps to get to bedroom/full bathroom. He states prior to admission she was independent with ambulation and adls. She does not have any DME in the home. She has a prescription plan and uses [facility]. We reviewed [facility] and he is agreeable to [facility] if they can accept the referral. He states her daughter will be home to assist in her care if needed. Medical work-up in progress. The discharge plan is to return home with her daughter
and son-in-law and a home visit [facility] when medically stable.
--- NOTE | 2024-07-06 12:41 | PTCARENOTE ---
Patient received from Katia RN; AAOx3, follows commands and responds spontaneously to RN, drowsy/fatigued; VSS; NSR on monitor; Epicardial AV wires present with temporary pacemaker settings AAI 50/10/0.5 - no pacing noted on monitor; Edema +3 B/L LE
and trace B/L Hands - Tubigrips applied on B/L LE by prior RN; +2 DP and radial pulses; Lungs diminished at bases; SpO2 95-97% on 2L NC; IS 500 ml; CTx2 draining serosanguineous drainage - no crepitus, tidaling, or air leak noted; Round, SNT
abdomen; Patient urinating on BSC; Surgical sites intact; RIJ Cordis with KVO infusing; PIVx2; Patient denies any pain at this time; PO Midodrine increased starting for afternoon dose; See nursing documentation for further details.
[2024-07-06] MEDS: FERRLECIT 110 MG IV (13:40)
[2024-07-06] MEDS: ProAmatine 5 MG PO ×2 (13:40→17:37)
--- NOTE | 2024-07-06 17:16 | PTCARENOTE ---
Patient with low BP's - PO Hydration strongly encouraged; Patient fatigued and drowsy throughout the day but patient agreeable to being out of bed in chair in afternoon.
[2024-07-06] MEDS: COUMADIN 2.5 MG PO (17:37)
--- NOTE | 2024-07-06 20:00 | PTCARENOTE ---
Received pt from [facility]. pt resting comfortably in bed. pt is AAOx4, states pain is 5/10, see MAR. NSR. VSS. heart sounds audible, radial and DP pulses palpable, trace generalized edema with +2 ZACK, temp epicardial AV wires set to AAI rate of 50,
MA of 10 and Mv of 0.5. lungs diminished at b/l bases, spo2 93% on 2LNC, x2 MS CT to -20 wall suction, no air leaks, no tidaling, no crepitus. hypoactive BS x4 quadrants, abdomen, round/obese, soft, non tender. pt voiding clear yellow urine.
surgical site maintained. right IJ cordis, and PIV maintained. pt washed with CHG wipes, new gown and new leads provided. call montilla within reach. will continue to monitor.
[2024-07-07] VITALS (23 sets, daily range): BP systolic 91–133; BP diastolic 59–86; BMI 34.1
--- NOTE | 2024-07-07 | PTCARENOTE ---
Pt assessment unchanged. pt resting comfortable. NSR on monitor, Low bp, pt stable, CVPA aware. call montilla within reach. will continue to monitor.
[2024-07-07 03:45] LABS: Hematocrit 30.7 % (37.0-47.0); Hemoglobin 10.3 g/dL (12.0-16.0); Mean Corp Hgb Conc. 33.6 g/dL (33.0-37.0); Mean Corpuscular Hgb 29.5 pg (27.0-31.0); Mean Platelet Volume 11.1 fL (7.4-10.4); Platelet Count 175 10^3/uL (130-400); Red Blood Cell Count 3.49 10^6/uL (4.20-5.40); Red Cell Dist. Width 13.2 % (11.5-14.5); White Blood Cell Count 14.9 10^3/uL (4.8-10.8)
--- NOTE | 2024-07-07 04:00 | PTCARENOTE ---
Pt assessment unchanged; NSR on monitor, VSS. pt assisted OOB to commode, then to chair. labs drawn and sent. call montilla within reach. will continue to monitor.
[2024-07-07 04:11] LABS: Blood Urea Nitrogen 22 mg/dl (7-17); Calcium 8.7 mg/dl (8.4-10.2); Carbon Dioxide 27 mmol/L (22-30); Chloride 102 mmol/L (98-107); Estimated Creatinine Clearance 80 ml/min; Glucose 97 mg/dl (70-99); Magnesium 2.2 mg/dl (1.6-2.3); Potassium 4.4 mmol/L (3.5-5.1); Sodium 136 mmol/L (135-145); eGFR > 60.00
--- NOTE | 2024-07-07 05:38 | W.PN.CT ---
Today's Communication / Plan
-
-pod #3
-no significant issues overnight
-low SBP 80s-90s - no dizziness with getting out of bed this am. Midodrine 5 tid started on 07/06
-in nsr 70s overnight, no nani or pauses (pw @ AAI 50).
-CT output: 2 meds 30/115 in 12/24 hrs
-labs are stable - Cr 0.7, Hg 10.3
-continue current meds (Holding Amio and BB d/t early postop nani/junctional)
-encourage IS, OOB
Assessment / Plan
-
Assessment:
-S/P Sternotomy/Surgical aortic valve replacement [25 mm bioprosthesis]/Surgical, chordal sparing, mitral valve replacement [27 mm bioprosthesis]/Left atrial maze [RF ablation and cryo]/ Left atrial appendage exclusion [40 mm clip], by Dr. Mcguire,
07/04/24, pod#3
-Moderately severe aortic valve stenosis, bicuspid valve with heavy calcification and sclerosis
-Severe aortic valve insufficiency
-Moderately severe mitral valve insufficiency with sclerosis and thickening particularly of the posterior leaflet at the anterior lateral commissure, resembles a rheumatic valve, type IIIa
-Paroxysmal atrial fibrillation�
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
-Moderate MR�
-Severely left atrial dilatation
-LVEF 47% per echo 06/13/24, EF 40% per intraop TONJA
-Acute on chronic systolic CHF
-Class 1 obesity (BMI 32.4)
-Hypothyroidism�
-Goiter�
-DJD�
-Lymphedema
-Chronic low back pain�
-Acute postop blood loss/Anemia (stable without transfusion
-Acute postop atelectasis
-Intraop and postop cardiogenic shock (CI 1.64)
-Acute postop hypovolemia with subsequent hypervolemia
-Acute postop junctional rhythm @ 63 bpm
-Acute postop sinus bradycardia, had been in junctional rhythm immediately postop, was a-paced @ 80 bpm overnight. Amiodarone and Lopressor currently on hold
Discussed patient care with: Nursing and Care Team
Subjective
Procedure
S/P Sternotomy/Surgical aortic valve replacement [25 mm bioprosthesis]/Surgical, chordal sparing, mitral valve replacement [27 mm bioprosthesis]/Left atrial maze [RF ablation and cryo]/ Left atrial appendage exclusion [40 mm clip], by Dr. Mcguire,
07/04/24
-
Date of Service: July 07, 2024
Objective Data
-
PT 14.6 Sec (11.4-14.6) 07/05/24 03:47
INR 1.15 07/05/24 03:47
APTT 36.6 Sec (23.4-35.0) H 07/04/24 11:37
Vital Signs
Vital Signs
Temp Pulse Resp BP Pulse Ox
97.8 F 68 18 90/61 97
07/07/24 00:00 07/07/24 00:00 07/07/24 00:00 07/06/24 23:53 07/07/24 00:00
CT Intake/Output/Weight
07/06/24 07/06/24 07/07/24
06:59 18:59 06:59
Intake Total 1300 / 1300
Output Total 535 / 805 310 / 740 430 / 740
Balance -535 / -651.5 990 / 560 -430 / 560
SaO2: 97
Physical Exam
-
General: Awake and AOx3
Cardiovascular: Regular rate & rhythm, No Murmurs and No Rub
Respiratory: Rales (at R base. No wheeze b/l) and Decreased Breath Sounds
Sternum: Stable
Incision: Clean, Dry and Intact
Extremities: Edema +2 (tubigrip stockings on b/l)
Data Reviewed
-
Lab Results: Results Reviewed
Medications: Active Meds Reviewed
Chest X-Ray: Report Reviewed and Image Reviewed
ECG: Report Reviewed and Image Reviewed
[2024-07-07] MEDS: TYLENOL 1000 MG PO ×3 (05:45→21:00)
[2024-07-07] MEDS: SYNTHROID 100 MCG PO (05:47)
[2024-07-07] MEDS: TORADOL 15 MG IV (05:47)
--- NOTE | 2024-07-07 07:56 | W.PN.CD ---
Today's Communication / Plan
-
resume BB/amio as able; oob / incentive spirometry; weight up 2 kg in 2 days --> suggest IV lasix for goal negative 500mL
Impression / Plan
-
BACKGROUND: 68 [place] speaking female with bicuspid aortic valve with severe symptomatic aortic stenosis/aortic insufficiency, rheumatic moderate mitral regurgitation, paroxysmal atrial fibrillation (on Eliquis, last dose 06/28/24), HFpEF, mild
nonobstructive CAD and hypothyroidism, s/p AVR/MVR 07/04/24.
Neuro Intensivist Physician: Dr. Villareal ([facility])
Severe aortic stenosis s/p 25 mm Saunders Inspiris Resilia (25 mm) on 07/04/[address] Mcguire
Moderate�severe rheumatic mitral regurgitation s/p Saunders mitral wrist Resilia (27 mm)
-Pre-LVEF 45%, post LVEF 55% on dobutamine without RWMA
-At conclusion of case, AV mean gradient 3 mmHg, MV 2 mmHg
-Required no blood products, 250 mL Cell Saver
-07/05 EKG sinus with mildly prolonged QT
HFpEF, chronic
-RHC with PCWP 30 on admission -> furosemide; appears euvolemic today; no JVD noted with patient in chair but weight up 2 kg in 2 day --> lasix for goal negative 500 negative
-Trend daily weight, I/O, and BMP
-Heart failure education
Paroxysmal atrial fibrillation
-Left atrial maze (RF ablation and cryo) with 40 mm NANCY clip during surgery
-Sinus rhythm on EKG
-Some bradycardia - sinus without any pauses. Junctional rhythm noted post op but resolved. Consider pacing wire removal.
-Oral anticoagulation: typically on Eliquis, last dose 06/28/24, resumption per CT surgery
-Holding Amiodarone and Lopressor for low blood pressure / bradycardia; resume as able
Leukocytosis, perhaps reactive, stable
Chest pain, resolved with discontinuation of [place]
SUBJECTIVE:
sitting in chair.
DATA:
Right heart catheterization, 06/30/2024:
1. Elevated biventricular filling pressures with moderate post-capillary pulmonary hypertension and reduced cardiac index
HEMODYNAMIC DATA
SBP 168/80 (mean 115)
RA 15
RV 51/12 (EDP 16)
PA 46/31 (mean 37)
PCWP 30 (v-waves to 38)
CO/CI 3.46/1.90
SVR 2312
PVR 2.0
Physical Exam
Vital Signs/Labs
Vital Signs
Temp Pulse Resp BP Pulse Ox
36.6 C 70 16 91/61 95
07/07/24 04:00 07/07/24 07:30 07/07/24 04:00 07/07/24 04:09 07/07/24 07:30
07/06/24 07/07/24 07/08/24
06:59 06:59 06:59
Actual Weight 83.6 kg 84.5 kg
07/07/24 03:16
07/07/24 03:16
PT 14.6 Sec (11.4-14.6) 07/05/24 03:47
INR 1.15 07/05/24 03:47
APTT 36.6 Sec (23.4-35.0) H 07/04/24 11:37
Magnesium 2.2 mg/dl (1.6-2.3) 07/07/24 03:16
Physical Exam
Constitutional: No acute distress
Cardiovascular: Rhythm & rate is regular, Systolic murmur absent, Diastolic murmur absent and Pedal edema present
Respiratory: Lungs clear to auscul. and Other (reduced respiratory effort)
Neuro/Psych: Alert
Data Reviewed
-
Date of Service: July 07, 2024
Medical Decision Making: Reviewed Test Results
EKG: Tracing Personally Visualized and interpreted
X-Ray/CT/US/MRI/NUC/PET: Image Personally Visualized and interpreted
Labs: Labs Reviewed by me
[2024-07-07] MEDS: LIDOCAINE 4% PATCH TOPICAL (08:30)
[2024-07-07] MEDS: LIPITOR 10 MG PO (08:33)
[2024-07-07] MEDS: MAGNESIUM OXIDE 500 MG PO ×2 (08:33→19:05)
[2024-07-07] MEDS: BACTROBAN 2% OINTMENT 1 APPLIC NASAL ×2 (08:33→19:05)
[2024-07-07] MEDS: NEURONTIN 100 MG PO ×3 (08:33→21:01)
[2024-07-07] MEDS: LOW STRENGTH ASPIRIN 81 MG PO (08:34)
[2024-07-07] MEDS: PROTONIX 40 MG PO (08:34)
[2024-07-07] MEDS: ProAmatine 5 MG PO (08:34)
[2024-07-07] MEDS: NSS IV (08:57)
[2024-07-07] MEDS: SENOKOT-S 1 TABLET PO ×2 (09:09→19:05)
--- NOTE | 2024-07-07 09:15 | PTCARENOTE ---
Patient received from child development consultant resting oob in chair, AAO x 3, awaiting breakfast. NSR via cm, SaO2 @ 96% on RA. RIJ Cordis w/kvo infusing. A+V pacing wires to pulse generator at back up rate 50bpm, no spikes noted. Mediastinal chest tubes x 2 ,
Y-connected to pleurevac, no air leaks noted on -20cm suction. All procedural sites stable. Son contacted via phone, updated, conveyed am plan of care to patient - in agreement. See work list for full assessment and interventions performed.
--- NOTE | 2024-07-07 11:45 | PTCARENOTE ---
Pacing wires d/c'd by NEO Nolan. Bedrest maintained x 1 hour, VS obtained per protocol. After one hour, chest tubes d/c'd as ordered. Patient tolerated well. BP stable, SaO2 @ 97% on RA.
[2024-07-07] MEDS: FERRLECIT 110 MG IV (14:08)
[2024-07-07] MEDS: ProAmatine 10 MG PO ×2 (14:08→17:00)
--- NOTE | 2024-07-07 16:17 | PTCARENOTE ---
Patient received from Sayda RN; AAOx3, follows commands and responds spontaneously to RN, fatigued but OOB in chair; Patient complains of dizziness at times but VSS; NSR on monitor; Edema +2 B/L LE and trace B/L Hands - Tubigrips applied on B/L LE
by prior RN; +2 DP and radial pulses; Lungs diminished at bases; SpO2 93-94% on RA; IS 500 ml; Patient urinating in bathroom; Surgical sites intact; RIJ Cordis with KVO infusing; PIVx2; Patient denies any pain at this time; See nursing documentation
for further details.
[2024-07-07] MEDS: ROXICODONE 5 MG PO (20:24)
--- NOTE | 2024-07-07 20:49 | PTCARENOTE ---
Right IJ Cordis removed per order; VSS throughout and no signs of respiratory distress noted; no bleeding at site; covered with vaseline gauze, 4x4, and tegaderm.
--- NOTE | 2024-07-07 23:37 | PTCARENOTE ---
Assumed pt care. Walking rounds completed with previous RN. Pt resting in bed at time of assessment. Denies pain/discomfort, sleeping. NSR on monitor, heart tones normal, distal pulses weakly palpable, generalized anasarca present. Anterior BS
clear/equal, diminished in b/l bases, POX 95% on RA. Procedural sites intact. PIV present & patent. VSS.
[2024-07-08] VITALS (8 sets, daily range): BP systolic 97–122; BP diastolic 60–92; BMI 34.1
--- NOTE | 2024-07-08 04:59 | PTCARENOTE ---
VS obtained. Labs drawn & sent. Leg wraps applied. Pt assisted into bathroom with stand-by assistance. Weight obtained on standing scale. Pt remains OOB in chair. Tolerated ambulation. No other changes.
[2024-07-08] MEDS: TYLENOL 1000 MG PO ×3 (05:02→21:29)
[2024-07-08 05:03] LABS: Hematocrit 30.8 % (37.0-47.0); Hemoglobin 10.7 g/dL (12.0-16.0); Mean Corp Hgb Conc. 34.7 g/dL (33.0-37.0); Mean Corpuscular Hgb 30.2 pg (27.0-31.0); Mean Platelet Volume 10.4 fL (7.4-10.4); Platelet Count 237 10^3/uL (130-400); Red Blood Cell Count 3.54 10^6/uL (4.20-5.40); Red Cell Dist. Width 13.1 % (11.5-14.5); White Blood Cell Count 11.4 10^3/uL (4.8-10.8)
[2024-07-08] MEDS: SYNTHROID 100 MCG PO (05:03)
[2024-07-08 05:41] LABS: Blood Urea Nitrogen 19 mg/dl (7-17); Calcium 8.3 mg/dl (8.4-10.2); Carbon Dioxide 26 mmol/L (22-30); Chloride 103 mmol/L (98-107); Estimated Creatinine Clearance 93 ml/min; Glucose 95 mg/dl (70-99); Magnesium 2.2 mg/dl (1.6-2.3); Potassium 4.2 mmol/L (3.5-5.1); Sodium 138 mmol/L (135-145); eGFR > 60.00
--- NOTE | 2024-07-08 06:31 | W.PN.CT ---
Today's Communication / Plan
-
-pod #4
-no issues overnight
-on Midodrine 10 tid for hypotension. Holding BB and Amio
-wt is up 11 lbs. Difficult to diurese d/t hypotension
-off O2 - pOx 95% on RA
-preop was on Eliquis for paf
-current meds: ASA, Midodrine, Lipitor, Protonix, Neurontin
-encourage IS, OOB, ambulate
Assessment / Plan
-
Assessment:
-S/P Sternotomy/Surgical aortic valve replacement [25 mm bioprosthesis]/Surgical, chordal sparing, mitral valve replacement [27 mm bioprosthesis]/Left atrial maze [RF ablation and cryo]/ Left atrial appendage exclusion [40 mm clip], by Dr. Mcguire,
07/04/24, pod#4
-Moderately severe aortic valve stenosis, bicuspid valve with heavy calcification and sclerosis
-Severe aortic valve insufficiency
-Moderately severe mitral valve insufficiency with sclerosis and thickening particularly of the posterior leaflet at the anterior lateral commissure, resembles a rheumatic valve, type IIIa
-Paroxysmal atrial fibrillation�
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
-Moderate MR�
-Severely left atrial dilatation
-LVEF 47% per echo 06/13/24, EF 40% per intraop TONJA
-Acute on chronic systolic CHF
-Class 1 obesity (BMI 32.4)
-Hypothyroidism�
-Goiter�
-DJD�
-Lymphedema
-Chronic low back pain�
-Acute postop blood loss/Anemia (stable without transfusion
-Acute postop atelectasis
-Intraop and postop cardiogenic shock (CI 1.64)
-Acute postop hypovolemia with subsequent hypervolemia
-Acute postop junctional rhythm @ 63 bpm
-Acute postop sinus bradycardia, had been in junctional rhythm immediately postop, was a-paced @ 80 bpm overnight. Amiodarone and Lopressor currently on hold
Discussed patient care with: Nursing and Care Team
Subjective
Procedure
S/P Sternotomy/Surgical aortic valve replacement [25 mm bioprosthesis]/Surgical, chordal sparing, mitral valve replacement [27 mm bioprosthesis]/Left atrial maze [RF ablation and cryo]/ Left atrial appendage exclusion [40 mm clip], by Dr. Mcguire,
07/04/24
-
Date of Service: July 08, 2024
Objective Data
-
PT 14.6 Sec (11.4-14.6) 07/05/24 03:47
INR 1.15 07/05/24 03:47
APTT 36.6 Sec (23.4-35.0) H 07/04/24 11:37
Vital Signs
Vital Signs
Temp Pulse Resp BP Pulse Ox
98.1 F 67 18 99/65 95
07/07/24 23:38 07/07/24 23:24 07/07/24 23:38 07/07/24 23:24 07/07/24 23:38
CT Intake/Output/Weight
07/07/24 07/07/24 07/08/24
06:59 18:59 06:59
Intake Total 320 / 590 270 / 590
Output Total 430 / 740 270 / 270
Balance -430 / 560 50 / 320 270 / 320
SaO2: 95
Physical Exam
-
General: Awake and AOx3
Cardiovascular: Regular rate & rhythm, No Murmurs and No Rub
Respiratory: Decreased Breath Sounds
Sternum: Stable
Incision: Clean, Dry and Dressing Intact
Extremities: Edema +2
Data Reviewed
-
Lab Results: Results Reviewed
Medications: Active Meds Reviewed
Chest X-Ray: Report Reviewed and Image Reviewed
ECG: Report Reviewed and Image Reviewed
[2024-07-08] MEDS: LIDOCAINE 4% PATCH TOPICAL (07:57)
--- NOTE | 2024-07-08 08:00 | PTCARENOTE ---
Assumed pt care. Walking rounds completed with previous RN. Pt resting in bed at time of assessment. complaints of leg pain. requesting teds to be taken off for a bit. propped up on pillows. NSR on monitor. weak pulses. +2 lower extrem edema. POX
97% on RA. lungs diminished at bases. IS 500-750. surigcal sites stable. PIV present & patent. VSS. will continue ot monitor.
--- NOTE | 2024-07-08 08:13 | W.PN.CD ---
Today's Communication / Plan
-
consider diuresis for goal even to mildly negative
Impression / Plan
-
BACKGROUND: 68 Estonian speaking female with bicuspid aortic valve with severe symptomatic aortic stenosis/aortic insufficiency, rheumatic moderate mitral regurgitation, paroxysmal atrial fibrillation (on Eliquis, last dose 06/28/24), HFpEF, mild
nonobstructive CAD and hypothyroidism, s/p AVR/MVR 07/04/24.
Edger Feeder: Dr. Villareal ([facility])
Severe aortic stenosis s/p 25 mm Saunders Inspiris Resilia (25 mm) on 07/04/[address] Mcguire
Moderate�severe rheumatic mitral regurgitation s/p Saunders mitral wrist Resilia (27 mm)
-Pre-LVEF 45%, post LVEF 55% on dobutamine without RWMA
-At conclusion of case, AV mean gradient 3 mmHg, MV 2 mmHg
-Required no blood products, 250 mL Cell Saver
-07/05 EKG sinus with mildly prolonged QT
-low SBP post procedure with mild orthostasis, cont. midodrine
HFpEF, chronic
-RHC with PCWP 30 on admission -> furosemide; appears euvolemic today; weight up 2-3 kg from admission, aim for even fluid balance given orthostasis, hopefully able to tolerate more aggressive volume removal pending imporvement in orthostatic sx
-Trend daily weight, I/O, and BMP
-Heart failure education
Paroxysmal atrial fibrillation
-Left atrial maze (RF ablation and cryo) with 40 mm NANCY clip during surgery
-Sinus rhythm on EKG
-Some bradycardia - sinus without any pauses. Junctional rhythm noted post op but resolved. Consider pacing wire removal.
-Oral anticoagulation: typically on Eliquis, last dose 06/28/24, resumption per CT surgery
-Holding Amiodarone and Lopressor for low blood pressure / bradycardia; resume as able
Leukocytosis, perhaps reactive, stable
Chest pain, resolved with discontinuation of [place]
SUBJECTIVE:
dizzy with ambulation
DATA:
Right heart catheterization, 06/30/2024:
1. Elevated biventricular filling pressures with moderate post-capillary pulmonary hypertension and reduced cardiac index
HEMODYNAMIC DATA
SBP 168/80 (mean 115)
RA 15
RV 51/12 (EDP 16)
PA 46/31 (mean 37)
PCWP 30 (v-waves to 38)
CO/CI 3.46/1.90
SVR 2312
PVR 2.0
Physical Exam
Vital Signs/Labs
Vital Signs
Temp Pulse Resp BP Pulse Ox
36.9 C 76 18 114/66 96
07/08/24 04:00 07/08/24 07:00 07/08/24 04:00 07/08/24 04:34 07/08/24 04:00
07/07/24 07/08/24 07/09/24
06:59 06:59 06:59
Actual Weight 84.5 kg 84.5 kg
07/08/24 04:42
07/08/24 04:42
PT 14.6 Sec (11.4-14.6) 07/05/24 03:47
INR 1.15 07/05/24 03:47
APTT 36.6 Sec (23.4-35.0) H 07/04/24 11:37
Magnesium 2.2 mg/dl (1.6-2.3) 07/08/24 04:42
Physical Exam
Constitutional: No acute distress
Cardiovascular: Rhythm & rate is regular, JVD pressure is normal, Systolic murmur absent, Diastolic murmur absent and Pedal edema present
Respiratory: Respiratory effort normal
Neuro/Psych: Alert and Oriented
Data Reviewed
-
Date of Service: July 08, 2024
Medical Decision Making: Reviewed Test Results
Labs: Labs Reviewed by me
[2024-07-08] MEDS: NEURONTIN 100 MG PO ×3 (08:17→21:28)
[2024-07-08] MEDS: SENOKOT-S 1 TABLET PO ×2 (08:17→19:46)
[2024-07-08] MEDS: PROTONIX 40 MG PO (08:17)
[2024-07-08] MEDS: LIPITOR 10 MG PO (08:17)
[2024-07-08] MEDS: LOW STRENGTH ASPIRIN 81 MG PO (08:17)
[2024-07-08] MEDS: MAGNESIUM OXIDE 500 MG PO ×2 (08:17→19:46)
[2024-07-08] MEDS: ProAmatine 10 MG PO ×3 (08:18→18:01)
[2024-07-08] MEDS: BACTROBAN 2% OINTMENT 1 APPLIC NASAL (08:19)
[2024-07-08] MEDS: NSS IV (08:20)
[2024-07-08] MEDS: FLEXBUMIN 100 IV (09:54)
[2024-07-08 11:35] LABS: INR 1.07; PT 13.7 Sec (11.4-14.6)
[2024-07-08] MEDS: LASIX 20 MG IV (12:39)
[2024-07-08] MEDS: FLUSH (NSS) 1 FLUSH IV (12:41)
--- NOTE | 2024-07-08 12:48 | PTCARENOTE ---
received patient from previous shift, monitor shows NSR, VSS, lung acuña clear but shallow, 97% on RA, I/S 750. patient speaks a different language and doesn't like the language line therefore she called her son on her phone to communicate. patient
presently has pain in sternum, Roxicodone po given as ordered. also patient has plus 2 pitting edema bilat of LE, lasix IV given as ordered. patient demonstrated how to use call montilla to let her needs known.
--- NOTE | 2024-07-08 13:12 | CM ---
CM following for DC planning needs.
Met w/ patient at bedside. Nursing working with pt.
Pt. doing well POD#4 CT Surg.
Plan for DC to home w/ family + VN thru [facility]
CM will remain avail.
[2024-07-08] MEDS: ELIQUIS 5 MG PO (19:46)
--- NOTE | 2024-07-08 20:30 | PTCARENOTE ---
Pt converted into Afib. HR 60-70s. Asymptomatic. Tsil[place] CVPA aware.
[2024-07-08] MEDS: ROXICODONE 5 MG PO (21:28)
--- NOTE | 2024-07-08 23:53 | PTCARENOTE ---
Rec'd pt at handoff. AOx3 and pleasant. Tele- SR. Surgical sites intact. Pt c/o pain at sternal incision site 12/29. Roxicodone administered per order. See MAR. Currently in bed; call eladia w/in reach.
[2024-07-09] VITALS (49 sets, daily range): BP systolic 78–119; BP diastolic 54–87; BMI 33.7
--- NOTE | 2024-07-09 02:37 | W.PN.CT ---
Addendum entered and electronically signed by Ruben Franco MD 07/09/24 09:00:
I saw and examined the patient.
The PA's note was reviewed and I agree with the note.
Comment:
POD#5 s/p AVR/MVR/MAZE/ELAA
A-fib chronically, into AF at 8pm last night, rate-controlled. On Eliquis
CXR this AM w/ minor basilar effusions/pulm edema - continue diuresis
Continue midodrine
OOB/IS/ambulate
Original Note:
Today's Communication / Plan
-
-pod #5
-went into a-fib at ~8pm with controlled rate 60s-70s. Eliquis was started last night 07/08
-got 25% albumin and 20 iv Lasix 07/08- UO 900
-diurese as BP allows (wt is up 8 lbs from preop)
-continue Midodrine 10 tid
-Amio and Lopressor held
-current meds: ASA, Eliquis, Midodrine, Lipitor, Protonix, Neurontin
-encourage IS, OOB, ambulate
Assessment / Plan
-
Assessment:
-S/P Sternotomy/Surgical aortic valve replacement [25 mm bioprosthesis]/Surgical, chordal sparing, mitral valve replacement [27 mm bioprosthesis]/Left atrial maze [RF ablation and cryo]/ Left atrial appendage exclusion [40 mm clip], by Dr. Mcguire,
07/04/24, pod#5
-Moderately severe aortic valve stenosis, bicuspid valve with heavy calcification and sclerosis
-Severe aortic valve insufficiency
-Moderately severe mitral valve insufficiency with sclerosis and thickening particularly of the posterior leaflet at the anterior lateral commissure, resembles a rheumatic valve, type IIIa
-Paroxysmal atrial fibrillation�-on Eliquis preop
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
-Moderate MR�
-Severely left atrial dilatation
-LVEF 47% per echo 06/13/24, EF 40% per intraop TONJA
-Acute on chronic systolic CHF
-Class 1 obesity (BMI 32.4)
-Hypothyroidism�
-Goiter�
-DJD�
-Lymphedema
-Chronic low back pain�
-Acute postop blood loss/Anemia (stable without transfusion
-Acute postop atelectasis
-Intraop and postop cardiogenic shock (CI 1.64)
-Acute postop hypovolemia with subsequent hypervolemia
-Acute postop junctional rhythm @ 63 bpm
-Acute postop sinus bradycardia, had been in junctional rhythm immediately postop, was a-paced @ 80 bpm overnight. Amiodarone and Lopressor currently on hold
Discussed patient care with: Nursing and Care Team
Subjective
Procedure
S/P Sternotomy/Surgical aortic valve replacement [25 mm bioprosthesis]/Surgical, chordal sparing, mitral valve replacement [27 mm bioprosthesis]/Left atrial maze [RF ablation and cryo]/ Left atrial appendage exclusion [40 mm clip], by Dr. Mcguire,
07/04/24
-
Date of Service: July 09, 2024
Objective Data
-
PT 13.7 Sec (11.4-14.6) 07/08/24 11:17
INR 1.07 07/08/24 11:17
APTT 36.6 Sec (23.4-35.0) H 07/04/24 11:37
Vital Signs
Vital Signs
Temp Pulse Resp BP Pulse Ox
98.2 F 68 18 116/86 99
07/08/24 21:33 07/08/24 22:00 07/08/24 21:33 07/08/24 21:32 07/08/24 21:33
CT Intake/Output/Weight
07/08/24 07/08/24 07/09/24
06:59 18:59 06:59
Intake Total 670 / 990
Output Total 350 / 620 900 / 900
Balance 320 / 370 -900 / -900
SaO2: 99
Physical Exam
-
General: Awake and AOx3
Cardiovascular: Regular rate & rhythm, No Murmurs and No Rub
Respiratory: Decreased Breath Sounds
Sternum: Stable
Incision: Clean, Dry and Dressing Intact
Extremities: Edema +2 b/l
Data Reviewed
-
Lab Results: Results Reviewed
Medications: Active Meds Reviewed
Chest X-Ray: Report Reviewed and Image Reviewed
ECG: Report Reviewed and Image Reviewed
[2024-07-09 03:26] LABS: Hematocrit 32.9 % (37.0-47.0); Hemoglobin 11.2 g/dL (12.0-16.0); Mean Corpuscular Hgb 29.9 pg (27.0-31.0); Mean Corpuscular Volume 87.7 fL (81.0-99.0); Mean Platelet Volume 9.9 fL (7.4-10.4); Platelet Count 323 10^3/uL (130-400); Red Blood Cell Count 3.75 10^6/uL (4.20-5.40); Red Cell Dist. Width 13.4 % (11.5-14.5); White Blood Cell Count 12.5 10^3/uL (4.8-10.8)
[2024-07-09 03:31] LABS: INR 1.15; PT 14.5 Sec (11.4-14.6)
[2024-07-09 03:34] LABS: Blood Urea Nitrogen 17 mg/dl (7-17); Carbon Dioxide 23 mmol/L (22-30); Chloride 103 mmol/L (98-107); Estimated Creatinine Clearance 79 ml/min; Glucose 114 mg/dl (70-99); Magnesium 2.4 mg/dl (1.6-2.3); Potassium 4.6 mmol/L (3.5-5.1); Sodium 138 mmol/L (135-145); eGFR > 60.00
[2024-07-09] MEDS: SYNTHROID 100 MCG PO (06:07)
[2024-07-09] MEDS: TYLENOL 1000 MG PO ×3 (06:07→20:51)
[2024-07-09] MEDS: LIDOCAINE 4% PATCH TOPICAL (07:54)
[2024-07-09] MEDS: ProAmatine 10 MG PO ×3 (07:55→17:13)
[2024-07-09] MEDS: NEURONTIN 100 MG PO ×3 (07:55→20:50)
[2024-07-09] MEDS: MAGNESIUM OXIDE 500 MG PO ×2 (07:55→20:50)
[2024-07-09] MEDS: ELIQUIS 5 MG PO ×2 (07:56→20:50)
[2024-07-09] MEDS: PROTONIX 40 MG PO (07:56)
[2024-07-09] MEDS: SENOKOT-S 1 TABLET PO (07:56)
[2024-07-09] MEDS: LOW STRENGTH ASPIRIN 81 MG PO (07:56)
--- NOTE | 2024-07-09 07:58 | PTCARENOTE ---
patient called out c/o SOB, o2 sat on RA in the 80's, o2 on 3LNC o2 sat 99%, lung acuña no air movement, CVPA came down to assess patient, will obtain portable chest xray and give IV lasix. patient called son to interpret.
[2024-07-09] MEDS: LIPITOR 10 MG PO (08:02)
[2024-07-09] MEDS: LASIX 20 MG IV (08:02)
[2024-07-09] MEDS: FLUSH (NSS) 1 FLUSH IV (08:04)
[2024-07-09] MEDS: MILK OF MAGNESIA 30 ML PO (08:33)
--- NOTE | 2024-07-09 08:33 | PTCARENOTE ---
patient c/o not having BM in several days MOM po given as ordered
[2024-07-09 09:36] LABS: Glucose - Point of Care 124 mg/dl (70-99)
--- NOTE | 2024-07-09 09:38 | PTCARENOTE ---
Addendum entered by Larissa Ball RN 07/09/24 10:06:
Dr. rubio at bedside assessing patient.
Original Note:
patient is BR, straining to have BM, stool is hard, patient diaphoretic, vagal, returned patient back to bed with assist of 3 people, BS checked 124, BP 119/87, HR 72, placed 3LNC 98%. Genna Garza DEVELOPMENT COORDINATOR in room when event happened. EKG ordered.
--- NOTE | 2024-07-09 10:10 | W.PN.CD ---
Addendum entered and electronically signed by Joselo Tierney MD 07/09/24 12:44:
I personally evaluated and examined the patient. I agree with the assessment and documentation, examination and plan of care as noted below.
Briefly, 68-year-old woman with bicuspid aortic valve status post AVR with 25 mm, with severe mitral regurgitation Niall post MVR with 27 mm who has history of persistent atrial fibrillation and has been in sinus rhythm postop. This a.m. she felt
near syncope while in the restroom. She felt cold and clammy and diaphoretic. She was started on anticoagulation therapy on 07/08/2024. With presyncope and clinically and clinically unwell l appearance, a bedside echo was done to rule out any
pericardial effusion. There was trace pericardial effusion noted without any signs of significant accumulation. This trace effusion could be result for pericarditis and common in postop period. Overnight patient did go back into atrial
fibrillation/atrial flutter. Patient was tolerating A-fib better with severe and MR. Now she is not feeling well though hemodynamically blood pressure and vitals are stable. She is on amiodarone p.o. twice a day. I will give her a bolus of
150 mg of IV amiodarone to get her out of A-fib flutter. The atrial flutter sometimes is poorly tolerated and may be responsible for her current symptoms.
Continue telemetry.
Original Note:
Today's Communication / Plan
-
Continue current medical therapy
Impression / Plan
-
BACKGROUND: 68 Sinhala speaking female with bicuspid aortic valve with severe symptomatic aortic stenosis/aortic insufficiency, rheumatic moderate mitral regurgitation, paroxysmal atrial fibrillation (on Eliquis, last dose 06/28/24), HFpEF, mild
nonobstructive CAD and hypothyroidism, s/p AVR/MVR 07/04/24.
[place]: Dr. Villareal ([facility])
Near syncope
-She had an episode in the bathroom this morning where she became sweaty and had decreased level of consciousness briefly
-No hypoglycemia, normotension
-POC US without pericardial effusion
-EKG shows rate controlled atrial fibrillation
-Chest pain free
Severe aortic stenosis s/p 25 mm Saunders Inspiris Resilia (25 mm) on 07/04/[address] Mcguire
Moderate�severe rheumatic mitral regurgitation s/p Saunders mitral wrist Resilia (27 mm)
-Pre-LVEF 45%, post LVEF 55% on dobutamine without RWMA
-At conclusion of case, AV mean gradient 3 mmHg, MV 2 mmHg
-Required no blood products, 250 mL Cell Saver
-07/05 EKG sinus with mildly prolonged QT
-Low SBP post procedure with mild orthostasis, cont. midodrine
HFpEF, chronic
-RHC with PCWP 30 on admission -> diuresis
-Admitting weight 81.4 kg, CXR with pulmonary edema, she received furosemide this morning
-Trend daily weight, I/O, and BMP
-Heart failure education
Paroxysmal atrial fibrillation
-Left atrial maze (RF ablation and cryo) with 40 mm NANCY clip during surgery
-Back in atrial fibrillation ~1999 last evening, currently rate controlled
-Oral anticoagulation: Apixaban 5 mg twice daily resumed 07/08/2024
Leukocytosis, perhaps reactive, stable
Chest pain, resolved with discontinuation of [place]
SUBJECTIVE:
See episode as above
DATA:
Right heart catheterization, 06/30/2024:
1. Elevated biventricular filling pressures with moderate post-capillary pulmonary hypertension and reduced cardiac index
HEMODYNAMIC DATA
SBP 168/80 (mean 115)
RA 15
RV 51/12 (EDP 16)
PA 46/31 (mean 37)
PCWP 30 (v-waves to 38)
CO/CI 3.46/1.90
SVR 2312
PVR 2.0
Physical Exam
Vital Signs/Labs
Vital Signs
Temp Pulse Resp BP Pulse Ox
97.4 F 88 16 92/69 98
07/09/24 07:22 07/09/24 08:02 07/09/24 07:22 07/09/24 08:02 07/09/24 08:30
07/08/24 07/09/24 07/10/24
06:59 06:59 06:59
Actual Weight 84.5 kg 83.4 kg
07/09/24 02:45
07/09/24 02:45
PT 14.5 Sec (11.4-14.6) 07/09/24 02:45
INR 1.15 07/09/24 02:45
APTT 36.6 Sec (23.4-35.0) H 07/04/24 11:37
Magnesium 2.4 mg/dl (1.6-2.3) H 07/09/24 02:45
Physical Exam
Constitutional: Comfortable
EENT: Anicteric and Moist mucous membranes
Cardiovascular: Rhythm & rate is regular, Pedal edema is absent and S1S2 is normal
Respiratory: Respiratory effort normal and Crackles Present
GI: Soft, Distention absent, Flat, Non tender and Normal bowel sounds
Neuro/Psych: AO x 3
Other: Skin (Diaphoretic during episode)
Data Reviewed
-
Date of Service: July 09, 2024
EKG: Report Reviewed by me
Labs: Labs Reviewed by me
[2024-07-09] MEDS: CORDARONE 103 MG IV ×2 (12:11→19:56)
--- NOTE | 2024-07-09 12:13 | PTCARENOTE ---
amiodarone bolus given as ordered.
[2024-07-09] MEDS: ROXICODONE 5 MG PO (12:38)
--- NOTE | 2024-07-09 12:40 | PTCARENOTE ---
patient c/o sternum pain, Roxicodone po given as ordered.
[2024-07-09] MEDS: PACERONE 200 MG PO ×2 (17:00→20:51)
--- NOTE | 2024-07-09 17:42 | PTCARENOTE ---
patient up to the BR due to feeling like she had a BM, had a BM returned from bathroom in chair, cold, clamy, feels like she is going to pass out. BP 88/65, repeat 90/69, monitor shows Afib/flutter, HR 74. CVPA at bedside, call to Dr. Tierney.
--- NOTE | 2024-07-09 18:12 | PTCARENOTE ---
[facility] wants to transfer patient to CVICU, room 2262. report given to Sergey ESPINO, personal belongings sent with patient.
--- NOTE | 2024-07-09 18:27 | PTCARENOTE ---
Received patient from IVU at 1815, patient requiring higher level of care and planning for cardioversion for symptomatic afib/aflutter. HR 60-70s, 4LNC with 100% O2 sat, New PIV placed, Temp afebrile, BP 108/73. awaiting anesthesia to arrive at
bedside.
--- NOTE | 2024-07-09 18:33 | PTCARENOTE ---
Pt cardioverted with 200J synchronized @ 1840. Post cardioversion EKG complete. NSR with first degree block. HR 60. BP 93/64. O2 sat 100% on 6LNC.
--- NOTE | 2024-07-09 19:33 | W.PN.UPDATE ---
Update Note
Progress Note Update
Patient continued to have episodes of lightheadedness/diaphoresis with c/o SOB. Evaluated patient earlier this evening and noted to have BP 90/69, O2 sat 100% on 5L NC. She was resting in the chair, diaphoretic and clammy. Heart irregularly
irregular with no murmur noted, lungs clear to auscultation but diminished, no crackles or rales. Discussed with nursing, attending CT surgeon and cardiology. decision to move patient back to CVICU. I was concerned patient is not tolerating
afib/flutter as per discussions with cardiology earlier this morning. I discussed bedside cardioversion with Shayla Gunderson and Salvador who were agreeable. Consulted anesthesia for bedside light sedation. Consent obtained from patient's son in
law who was at bedside, patient also verbally agreeable.
Sedation provided by anesthesia, rhythm identified as atrial fibrillation/flutter in 60s, Synchronized cardioversion with 200J x1 shock delivered. Pt returned to normal sinus rhythm with long first degree AVB, rate 71. BP dipped as low as 78/59
briefly, but quickly recovered to >100 systolics and have remained stable. 12 lead EKG completed confirming SR. Discussed with Dr. Hernandez, amio bolus x1 ordered + amiodarone gtt 0.5mg/min x 6 hours to prevent further afib. Pt remains on
midodrine for orthostasis, will hold on adding BB at this time. Pt woke up and reports feeling better. We will continue to monitor closely in CVICU. Echo at bedside for full study for completeness.
[2024-07-09] MEDS: CORDARONE 518 MG IV (19:56)
--- NOTE | 2024-07-09 19:57 | W.PN.UPDATE ---
Update Note
Progress Note Update
Patient was in atrial fibrillation that has organized into atrial flutter. Patient was more symptomatic with atrial flutter than atrial fibrillation. Patient had an episode earlier this morning when she had presyncope while walking to the
restroom. This afternoon she again had another episode when she got out of the bed and walk to the restroom and almost passed out. Response was called. Patient became hemodynamically stable while at rest in bed. However, patient's blood pressure
remained borderline low and was associated with tachycardia which limits her ambulation. Bedside echo earlier today did not show any pericardial effusion. Patient restarted on Eliquis.
With now hemodynamically unstable atrial flutter, bedside echo was called. Decision was made to proceed with urgent cardioversion.
Anesthesia was called and cardioversion was done at bedside.
A single 200 J shock was able to get her back into normal sinus rhythm.
Amiodarone bolus was given and amiodarone drip started.
Bedside echo was done that did not show any significant pericardial effusion.
CCT 32 min
--- NOTE | 2024-07-09 20:00 | PTCARENOTE ---
assumed care of patient @ 1900. received pt post cardioversion, awaking from light sedation but Aox3. Non singaporean speaking, son in room to help translate. pt states she feels much better post cardioversion. NSR with 1st degree AVB on tele. + pulses,
+1 upper and +2 lower extremity edema. Lungs clear, diminished satting high 90s. pt taking shallow breaths, has some CURTIS and orthopnea. + BS, belly soft, normoactive. Surgical sites CDI. R wrist with amio running at .5, L AC piv patent. pt now
resting comfortably in bed, call montilla within reach .
[2024-07-09] MEDS: SENOKOT-S PO (22:26)
[2024-07-10] VITALS (16 sets, daily range): BP systolic 99–146; BP diastolic 52–84; BMI 33.3
[2024-07-10 04:29] LABS: Blood Urea Nitrogen 18 mg/dl (7-17); Calcium 9.4 mg/dl (8.4-10.2); Carbon Dioxide 25 mmol/L (22-30); Chloride 100 mmol/L (98-107); Estimated Creatinine Clearance 79 ml/min; Glucose 109 mg/dl (70-99); Magnesium 2.4 mg/dl (1.6-2.3); Potassium 4.5 mmol/L (3.5-5.1); Sodium 139 mmol/L (135-145); eGFR > 60.00
--- NOTE | 2024-07-10 04:31 | PTCARENOTE ---
pt assisted to bedside commode, voided 300. pt did well ambulating. assisted back to bed, labs drawn. remains SR with 1st degree. No change in assessment. call montilla within reach .
[2024-07-10 04:47] LABS: Hemoglobin 9.8 g/dL (12.0-16.0); Mean Corp Hgb Conc. 33.8 g/dL (33.0-37.0); Mean Corpuscular Hgb 29.1 pg (27.0-31.0); Mean Corpuscular Volume 86.1 fL (81.0-99.0); Mean Platelet Volume 9.7 fL (7.4-10.4); Platelet Count 394 10^3/uL (130-400); Red Blood Cell Count 3.37 10^6/uL (4.20-5.40); Red Cell Dist. Width 13.8 % (11.5-14.5); White Blood Cell Count 16.1 10^3/uL (4.8-10.8)
--- NOTE | 2024-07-10 06:41 | W.PN.CT ---
Addendum entered and electronically signed by Ruben Franco MD 07/10/24 09:14:
I saw and examined the patient.
The PA's note was reviewed and I agree with the note.
Comment:
POD#6
Transfer back to CVICU last evening/afternoon for additional monitoring. Underwent successful cardioversion for AF, has maintained NSR. ECHO obtained w/ LVEF @40% (baseline), both AVR/MVR working well, no effusions
Continue Eliquis
ASA/Eliquis, midodrine, BB, amio, lipitor
OOB/IS/ambulate
Original Note:
Today's Communication / Plan
-
-pod #6
-s/p DCCV on 07/09 for symptomatic a-flutter, followed by Amio bolus and drip @ 0.5 for 6 hrs. In NSR 50s-60s overnight
-will start low dose BB to maintain nsr - Toprol 12.5 mg qd
-continue Eliquis
-bedside Echo 07/09: no pericardial effusion, EF 40-45%, no new wma, well functioning AV and MV
-current meds (ASA, Eliquis, Midodrine 10 tid, Toprol, Amio 200 tid, Lipitor)
-encourage IS, OOB
Assessment / Plan
-
Assessment:
-S/P Sternotomy/Surgical aortic valve replacement [25 mm bioprosthesis]/Surgical, chordal sparing, mitral valve replacement [27 mm bioprosthesis]/Left atrial maze [RF ablation and cryo]/ Left atrial appendage exclusion [40 mm clip], by Dr. Mcguire,
07/04/24, pod#6
-Moderately severe aortic valve stenosis, bicuspid valve with heavy calcification and sclerosis
-Severe aortic valve insufficiency
-Moderately severe mitral valve insufficiency with sclerosis and thickening particularly of the posterior leaflet at the anterior lateral commissure, resembles a rheumatic valve, type IIIa
-Paroxysmal atrial fibrillation�-on Eliquis preop
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
-Moderate MR�
-Severely left atrial dilatation
-LVEF 47% per echo 06/13/24, EF 40% per intraop TONJA
-Acute on chronic systolic CHF
-Class 1 obesity (BMI 32.4)
-Hypothyroidism�
-Goiter�
-DJD�
-Lymphedema
-Chronic low back pain�
-Acute postop blood loss/Anemia (stable without transfusion
-Acute postop atelectasis
-Intraop and postop cardiogenic shock (CI 1.64)
-Acute postop hypovolemia with subsequent hypervolemia
-Acute postop junctional rhythm @ 63 bpm
-Acute postop sinus bradycardia, had been in junctional rhythm immediately postop, was a-paced @ 80 bpm overnight. Amiodarone and Lopressor currently on hold
-Symptomatic a-fib/flutter 60s-70s postop with diaphoresis, nearsyncope and SOB - S/p DCCV on 07/09/24
Echo 07/09 at bedside:
Moderately reduced left ventricular systolic function. Global hypokinesis with akinesis of the basal inferior wall. Abnormal (paradoxical) septal motion consistent with postoperative status. LV ejection fraction is 40-45%.
Bioprosthetic mitral valve, 27 mm. No mitral regurgitation is seen. Mean gradients across the mitral valve is 2 mmHg.
Bioprosthetic aortic valve, 25 mm. No paravalvular leak noted.
Normal pericardium without effusion.
Discussed patient care with: Nursing and Care Team
Subjective
Procedure
S/P Sternotomy/Surgical aortic valve replacement [25 mm bioprosthesis]/Surgical, chordal sparing, mitral valve replacement [27 mm bioprosthesis]/Left atrial maze [RF ablation and cryo]/ Left atrial appendage exclusion [40 mm clip], by Dr. Mcguire,
07/04/24
-
Date of Service: July 10, 2024
Objective Data
-
PT 14.5 Sec (11.4-14.6) 07/09/24 02:45
INR 1.15 07/09/24 02:45
APTT 36.6 Sec (23.4-35.0) H 07/04/24 11:37
Vital Signs
Vital Signs
Temp Pulse Resp BP Pulse Ox
98.1 F 64 19 103/54 98
07/09/24 21:00 07/09/24 22:00 07/09/24 22:00 07/09/24 22:00 07/09/24 21:00
CT Intake/Output/Weight
07/09/24 07/09/24 07/10/24
06:59 18:59 06:59
Intake Total 200 / 200 200 / 200
Output Total 500 / 1400 600 / 600
Balance -300 / -1200 -600 / -400 200 / -400
SaO2: 98
Physical Exam
-
General: Awake and AOx3
Cardiovascular: Regular rate & rhythm, No Murmurs and No Rub
Respiratory: Clear and Decreased Breath Sounds
Sternum: Stable
Incision: Clean, Dry and Intact
Extremities: Edema +2
Abdomen: soft, nontender, +bowel sounds, nondistended, +BM
Data Reviewed
-
Lab Results: Results Reviewed
Medications: Active Meds Reviewed
Chest X-Ray: Report Reviewed and Image Reviewed
ECG: Report Reviewed and Image Reviewed
[2024-07-10] MEDS: TYLENOL 1000 MG PO ×3 (06:57→20:01)
[2024-07-10] MEDS: SYNTHROID 100 MCG PO (06:57)
--- NOTE | 2024-07-10 07:54 | PTCARENOTE ---
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 NSR w/1st degree HB via cm, SaO2 @ 97% on RA. All procedural sites stable. Patient non-Dominican speaking, son assisted via phone. See work list for full assessment and interventions
performed.
[2024-07-10] MEDS: SENOKOT-S 1 TABLET PO ×2 (09:05→20:01)
[2024-07-10] MEDS: LOW STRENGTH ASPIRIN 81 MG PO (09:06)
[2024-07-10] MEDS: ELIQUIS 5 MG PO ×2 (09:06→20:01)
[2024-07-10] MEDS: PACERONE 200 MG PO ×3 (09:06→20:01)
[2024-07-10] MEDS: PROTONIX 40 MG PO (09:06)
[2024-07-10] MEDS: MAGNESIUM OXIDE 500 MG PO ×2 (09:06→20:01)
[2024-07-10] MEDS: NEURONTIN 100 MG PO ×3 (09:06→20:01)
[2024-07-10] MEDS: LIPITOR 10 MG PO (09:06)
[2024-07-10] MEDS: ProAmatine 10 MG PO ×2 (09:10→13:25)
[2024-07-10] MEDS: TOPROL XL 12.5 MG PO (09:10)
--- NOTE | 2024-07-10 09:14 | W.PN.CD ---
Today's Communication / Plan
-
-Continue amiodarone, aspirin and Eliquis
-Midodrine added for hypotension
-Beta-blockers added given recurrent atrial fibrillation/flutters.
-Out of bed, incentive spirometry and early ambulation.
Impression / Plan
-
68 Armenian speaking female with bicuspid aortic valve with severe symptomatic aortic stenosis/aortic insufficiency, rheumatic moderate mitral regurgitation, paroxysmal atrial fibrillation (on Eliquis, last dose 06/28/24), HFpEF, mild nonobstructive
CAD and hypothyroidism, s/p AVR/MVR 07/04/24.
Medical Office Secretary: Dr. Villareal ([facility])
Near syncope
-Recurrent presyncope is associated with atrial flutter
-Hemodynamically unstable s/p DC cardioversion and transferred back to ICU.
-Patient's symptoms completely resolved with resolution of atrial flutter.
-Ambulating without symptoms of lightheadedness
-Thankful for being back to her normal self.
Severe aortic stenosis s/p 25 mm Saunders Inspiris Resilia (25 mm) on 07/04/[address] Mcguire
Moderate�severe rheumatic mitral regurgitation s/p Saunders mitral wrist Resilia (27 mm)
-Pre-LVEF 45%, post LVEF 55% on dobutamine without RWMA
-At conclusion of case, AV mean gradient 3 mmHg, MV 2 mmHg
-Required no blood products, 250 mL Cell Saver
-07/05 EKG sinus with mildly prolonged QT
-Low SBP post procedure with mild orthostasis, cont. midodrine
HFpEF, chronic
-RHC with PCWP 30 on admission -> diuresis
-Admitting weight 81.4 kg, CXR with pulmonary edema, she received furosemide this morning
-Trend daily weight, I/O, and BMP
-Heart failure education
Paroxysmal atrial fibrillation
-Left atrial maze (RF ablation and cryo) with 40 mm NANCY clip during surgery
-Back in atrial fibrillation / flutter s/o DCCV 07/09/24
-Now in sinus rhythm and tolerating it well. Sinus bradycardia noted. With first-degree AV block
-Oral anticoagulation: Apixaban 5 mg twice daily resumed 07/08/2024
Leukocytosis, perhaps reactive, stable
Chest pain, resolved with discontinuation of [place]
SUBJECTIVE:
Feeling better. Out of the bed. Incisional pain.
DATA:
Right heart catheterization, 06/30/2024:
1. Elevated biventricular filling pressures with moderate post-capillary pulmonary hypertension and reduced cardiac index
HEMODYNAMIC DATA
SBP 168/80 (mean 115)
RA 15
RV 51/12 (EDP 16)
PA 46/31 (mean 37)
PCWP 30 (v-waves to 38)
CO/CI 3.46/1.90
SVR 2312
PVR 2.0
Physical Exam
Vital Signs/Labs
Vital Signs
Temp Pulse Resp BP Pulse Ox
98 F 70 16 106/79 97
07/10/24 07:31 07/10/24 09:10 07/10/24 07:31 07/10/24 09:10 07/10/24 07:46
07/09/24 07/10/24 07/11/24
06:59 06:59 06:59
Actual Weight 83.4 kg 82.6 kg
07/10/24 03:56
07/10/24 03:56
PT 14.5 Sec (11.4-14.6) 07/09/24 02:45
INR 1.15 07/09/24 02:45
APTT 36.6 Sec (23.4-35.0) H 07/04/24 11:37
Magnesium 2.4 mg/dl (1.6-2.3) H 07/10/24 03:56
Physical Exam
Constitutional: No acute distress and Comfortable
EENT: Anicteric and Moist mucous membranes
Cardiovascular: Rhythm & rate is regular, Pedal edema is absent, JVD pressure is normal and Systolic murmur absent
Respiratory: Respiratory effort normal, Wheeze Absent and Crackles Absent
GI: Soft, Distention absent, Non tender and Normal bowel sounds
Neuro/Psych: Alert, Oriented, AO x 3 and Motor deficits absent
Data Reviewed
-
Date of Service: July 10, 2024
Medical Decision Making: Reviewed Test Results, Independent Historian Assessment, Test Interpretation and Review of Case with other Provider
EKG: Tracing Personally Visualized and interpreted
Echo: Report Reviewed by me
Labs: Labs Reviewed by me
Old Records: Reviewed
[2024-07-10] MEDS: LIDOCAINE 4% PATCH TOPICAL (09:17)
--- NOTE | 2024-07-10 16:24 | PTCARENOTE ---
VS obtained, patient resting comfortably. Family at bedside.
[2024-07-10] MEDS: ProAmatine PO (18:20)
[2024-07-10] MEDS: ProAmatine 5 MG PO (18:38)
--- NOTE | 2024-07-10 20:00 | PTCARENOTE ---
PT AAOx4 with help of daughter and son translating, NS w/ 1st degree VSS, ra duing he day and 2L NC @ night for comfort, GI and WNL, sternal incision CDI, PIV WNL, see worklist for detailed assessment
[2024-07-10] MEDS: MELATONIN 3 MG PO (21:00)
[2024-07-11] VITALS (15 sets, daily range): BP systolic 81–134; BP diastolic 57–78; PULSE 70; O2SAT 97–99; BMI 32.9
--- NOTE | 2024-07-11 | PTCARENOTE ---
no change from previous assessment
--- NOTE | 2024-07-11 04:50 | W.PN.CT ---
Today's Communication / Plan
-
-pod #7
-s/p DCCV on 07/09 for unstable/symptomatic a-flutter, followed by Amio bolus and drip @ 0.5 for 6 hrs. Remains NSR 50s-60s overnight. No wires.
-On low dose BB to maintain nsr - Toprol 12.5 mg qd
-continue Eliquis
-bedside Echo 07/09: no pericardial effusion, EF 40-45%, no new wma, well functioning AV and MV
-current meds (ASA, Eliquis, Midodrine 10->5 mg tid, Toprol, Amio 200 tid, Lipitor)
-encourage IS, OOB
Assessment / Plan
-
Assessment:
-S/P Sternotomy/Surgical aortic valve replacement [25 mm bioprosthesis]/Surgical, chordal sparing, mitral valve replacement [27 mm bioprosthesis]/Left atrial maze [RF ablation and cryo]/ Left atrial appendage exclusion [40 mm clip], by Dr. Mcguire,
07/04/24, pod#7
-Moderately severe aortic valve stenosis, bicuspid valve with heavy calcification and sclerosis
-Severe aortic valve insufficiency
-Moderately severe mitral valve insufficiency with sclerosis and thickening particularly of the posterior leaflet at the anterior lateral commissure, resembles a rheumatic valve, type IIIa
-Paroxysmal atrial fibrillation�-on Eliquis preop
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
-Moderate MR�
-Severely left atrial dilatation
-LVEF 47% per echo 06/13/24, EF 40% per intraop TONJA
-Acute on chronic systolic CHF
-Class 1 obesity (BMI 32.4)
-Hypothyroidism�
-Goiter�
-DJD�
-Lymphedema
-Chronic low back pain�
-Acute postop blood loss/Anemia (stable without transfusion
-Acute postop atelectasis
-Intraop and postop cardiogenic shock (CI 1.64)
-Acute postop hypovolemia with subsequent hypervolemia
-Acute postop junctional rhythm @ 63 bpm
-Acute postop sinus bradycardia, had been in junctional rhythm immediately postop, was a-paced @ 80 bpm overnight. Amiodarone and Lopressor currently on hold
-Symptomatic a-fib/flutter 60s-70s postop with diaphoresis, nearsyncope and SOB - S/p DCCV on 07/09/24
Echo 07/09 at bedside:
Moderately reduced left ventricular systolic function. Global hypokinesis with akinesis of the basal inferior wall. Abnormal (paradoxical) septal motion consistent with postoperative status. LV ejection fraction is 40-45%.
Bioprosthetic mitral valve, 27 mm. No mitral regurgitation is seen. Mean gradients across the mitral valve is 2 mmHg.
Bioprosthetic aortic valve, 25 mm. No paravalvular leak noted.
Normal pericardium without effusion.
Subjective
Procedure
S/P Sternotomy/Surgical aortic valve replacement [25 mm bioprosthesis]/Surgical, chordal sparing, mitral valve replacement [27 mm bioprosthesis]/Left atrial maze [RF ablation and cryo]/ Left atrial appendage exclusion [40 mm clip], by Dr. Mcguire,
07/04/24
-
Date of Service: July 11, 2024
Objective Data
-
PT 14.5 Sec (11.4-14.6) 07/09/24 02:45
INR 1.15 07/09/24 02:45
APTT 36.6 Sec (23.4-35.0) H 07/04/24 11:37
Vital Signs
Vital Signs
Temp Pulse Resp BP Pulse Ox
98.3 F 56 18 122/68 97
07/11/24 00:00 07/11/24 04:00 07/11/24 00:00 07/11/24 00:00 07/10/24 16:23
CT Intake/Output/Weight
07/10/24 07/10/24 07/11/24
06:59 18:59 06:59
Intake Total 200 / 200 500 / 500
Output Total 300 / 900
Balance -100 / -700 500 / 500
SaO2: 97
Physical Exam
-
General: Awake, Oriented and AOx3
Cardiovascular: Regular rate & rhythm
Respiratory: Clear and Equal
Sternum: Stable
Incision: Clean, Dry and Intact
Extremities: Edema +1
Data Reviewed
-
Lab Results: Results Reviewed
Medications: Active Meds Reviewed
Chest X-Ray: Report Reviewed
ECG: Report Reviewed
[2024-07-11 06:32] LABS: Hematocrit 33.4 % (37.0-47.0); Hemoglobin 11.2 g/dL (12.0-16.0); Mean Corp Hgb Conc. 33.5 g/dL (33.0-37.0); Mean Corpuscular Hgb 29.8 pg (27.0-31.0); Mean Corpuscular Volume 88.8 fL (81.0-99.0); Mean Platelet Volume 9.4 fL (7.4-10.4); Platelet Count 402 10^3/uL (130-400); Red Blood Cell Count 3.76 10^6/uL (4.20-5.40); Red Cell Dist. Width 13.5 % (11.5-14.5); White Blood Cell Count 12.3 10^3/uL (4.8-10.8)
[2024-07-11 06:48] LABS: Blood Urea Nitrogen 14 mg/dl (7-17); Calcium 9.1 mg/dl (8.4-10.2); Carbon Dioxide 25 mmol/L (22-30); Chloride 103 mmol/L (98-107); Estimated Creatinine Clearance 92 ml/min; Glucose 107 mg/dl (70-99); Potassium 4.7 mmol/L (3.5-5.1); Sodium 140 mmol/L (135-145); eGFR > 60.00
--- NOTE | 2024-07-11 07:05 | PTCARENOTE ---
no change from previous assessment
[2024-07-11] MEDS: TYLENOL 1000 MG PO ×2 (07:07→13:43)
[2024-07-11] MEDS: SYNTHROID 100 MCG PO (07:07)
--- NOTE | 2024-07-11 08:15 | PTCARENOTE ---
pt received from previous RN, oriented, OOB in chair. SR w/ 1st degree AVB on the monitor, [employer] aware of MI. SBP 100s. +2 LE edema, trace hand edema. palpable pulses. pt on RA, 96% POX, lungs clear, diminished in bases. IS encouraged, 750ml. diet
tolerated well. voids. sternal incision ELAINE. chest tube sites ELAINE. PIV. see worklist for VS, I&O, and assessment.
[2024-07-11] MEDS: LASIX 20 MG PO (09:27)
[2024-07-11] MEDS: TOPROL XL 12.5 MG PO (09:28)
[2024-07-11] MEDS: ProAmatine 5 MG PO ×3 (09:28→17:11)
[2024-07-11] MEDS: SENOKOT-S 1 TABLET PO (09:28)
[2024-07-11] MEDS: PACERONE 200 MG PO ×2 (09:28→17:11)
[2024-07-11] MEDS: ELIQUIS 5 MG PO (09:30)
[2024-07-11] MEDS: MAGNESIUM OXIDE 500 MG PO (09:31)
[2024-07-11] MEDS: NEURONTIN 100 MG PO ×2 (09:31→17:11)
[2024-07-11] MEDS: LIPITOR 10 MG PO (09:31)
[2024-07-11] MEDS: PROTONIX 40 MG PO (09:31)
[2024-07-11] MEDS: LIDOCAINE 4% PATCH 1 PATCH TOPICAL (09:31)
[2024-07-11] MEDS: LOW STRENGTH ASPIRIN 81 MG PO (09:31)
--- NOTE | 2024-07-11 12:45 | PTCARENOTE ---
pt VSS, no changes in assessment. pt ambulated in hallway, completed stairs w/ CR. OOB in chair. pt does not want to shower at present until daughter gets here. IS encouraged.
--- NOTE | 2024-07-11 13:53 | PN.CDI ---
CDI
- -
CDI:
Physician Documentation Request
Admit Date: 06/30/24 09:15
Dear Doctor Shayla,
CT surgery progress note refer to the patient's heart failure as systolic.
Cardiology as diastolic.
EF echo 07/09 conclusion 'EF 40-45%'
In an attempt to clarify potentially conflicting documentation, please clarify the type of heart failure
systolic
diastolic
Other
Use of terms such as suspected, likely, concern for, or probable (associated with a specific diagnosis that is being evaluated, monitored, or treated as if it exists) are acceptable and can be coded in the inpatient setting, when documented at the
time of discharge.
Thank you,
Sayda Diana RN, BSN
CDI Specialist
tiger text
Please use your independent medical judgment in providing your response.
--- NOTE | 2024-07-11 14:01 | PN.CDI ---
CDI
- -
CDI:
Physician Documentation Request
Admit Date: 06/30/24 09:15
Dear Doctor Shayla,
07/04 patient underwent Sternotomy/Surgical aortic valve replacement ,Surgical, chordal sparing, mitral valve replacement ,Left atrial maze , Left atrial appendage exclusion.
07/09 CT update note states 'Patient continued to have episodes of lightheadedness/diaphoresis with c/o SOB. Evaluated patient earlier this evening and noted to have BP 90/69, O2 sat 100% on 5L NC. She was resting in the chair, diaphoretic and
clammy. Heart irregularly irregular'
Vital sign documentation shows patient on 2-5 Liters on 07/09.
Please clarify which of the following accurately represents the patient's respiratory status following surgery:
Acute respiratory failure -please indicate type
Acute pulmonary insufficiency (following surgery)
Chronic pulmonary insufficiency (following surgery)
Hypoxia
Other
Additional information for Pulmonary Insufficiency:
Consider when patients require fci oxygen therapy postoperatively
Weaned off oxygen initially then requiring supplemental oxygen
No other definitive diagnosis to support the need for oxygen (COPD exac, CHF etc.)
Unable to wean from vent
When criteria for respiratory failure not present
May extend stay or require additional resources; may need home O2
Additional information for Respiratory Failure:
Recognized criteria for Respiratory Failure (Source: [facility] Hospitalist Jul 2013)
ABGs: (1 or more) Symptoms Indicate:
1. p)2 <60 or RA SPO2 <91% on RA 1. Tachypnea, SOB, dyspnea 1. Type as:
2. pCO2 50 and pH <7.35 2. Use of accessory muscles a. Hypoxic
3. pO2 decrease of pCO2 increase by 3. Pallor or cyanosis b. Hypercapnic
10 mmHg from baseline if known 4. Anxiety or restlessness 2. If due to procedure or due to another cause
5. Unable to speak in full sentences
Supplemental O2 of > 40% Intubation is not required
Use of terms such as suspected, likely, concern for, or probable (associated with a specific diagnosis that is being evaluated, monitored, or treated as if it exists) are acceptable and can be coded in the inpatient setting, when documented at the
time of discharge.
Thank you,
Sayda Diana RN, BSN
CDI Specialist
tiger text
Please use your independent medical judgment in providing your response.
--- NOTE | 2024-07-11 15:41 | PTCARENOTE ---
Patient resting comfortably in bed, vitals are stable on room air. Awaiting pt daughter to come in for shower and d/c education. Utilized rug repairer ipad for medication education and plan of care updates.
--- NOTE | 2024-07-11 16:06 | W.DCSUMMARY ---
Discharge Summary
Discharge Data
Date of Admission: 06/30/24
Date of Discharge: 07/11/24
Total time spent discharging patient (in min): 40
-
Pending Results: No
Hospital Course
Primary care physician:
None
Outpatient statistical reporting analyst:
Shiv
Inpatient consultants:
CBC, back tender,
Procedures:
1. Surgical aortic valve replacement [25 mm bioprosthesis], Surgical, chordal sparing, mitral valve replacement [27 mm bioprosthesis], Left atrial maze [RF ablation and cryo], Left atrial appendage exclusion [40 mm clip]
Primary Diagnosis:
1. Moderately severe aortic valve stenosis, bicuspid valve with heavy calcification and sclerosis
Secondary Diagnoses:
1. acute postoperative hypotension
2. Severe aortic valve insufficiency
3. Moderately severe mitral valve insufficiency with sclerosis and thickening particularly of the posterior leaflet at the anterior lateral commissure, resembles a rheumatic valve, type IIIa
4. Paroxysmal atrial fibrillation
5. Hypothyroidism with a goiter
6. Degenerative joint disease
7. Morbidly obese with a BMI of greater than 30
8. Elevated wedge with large V waves up to 38, moderately reduced cardiac index of 1.9 on cath during hospitalization demonstrating elevated filling pressures, acute on chronic congestive systolic diastolic heart failure
HPI: 68-year-old female follows Dr. Mcguire outpatient was seen due to her severe aortic valve insufficiency and mitral valve insufficiency presented electively on 06/30 for surgical preop to my station. She was subsequently taken to the OR on 07/[address] Mcguire.
Hospital course: This patient was admitted on 06/30 where she went to the Computed Tomography Technologist and received a right heart cath and 40 of IV Lasix. On 07/01 she again was diuresed with 40 mg IV Lasix. On 07/02 her [place] was removed and IV Bumex was started.
Patient had a random bout of chest pain troponins was sent but her previous left heart cath showed mild coronary disease. On 07/04 patient was taken to the CV OR with Dr. Mcguire. She received an MVR, AVR, maze, and clip. She returned to the CVICU
on Levophed, dobutamine, Precedex, and insulin infusions. Dobutamine was weaned however patient would go into an intermittent junctional rhythm. Beta-blockers and amiodarone were placed on hold. She was extubated and patient was given 1 albumin
for fluid resuscitation. On 07/05 postoperative day #1 patient was D lined. She was bradycardic and hypotensive at times. She was a paced at 80 and Sebastian catheter was removed. On 07/06 postoperative day #2 calcium was repleted aggressively and
midodrine was started. She continues to be bradycardic at times. Coumadin was then started at 2.5 mg. On 07/07 postoperative day #3, patient's chest tubes and wires were removed and midodrine was increased. On 07/08 postoperative day #4
patient's midodrine was continued and she was given 100 mL of 25% albumin followed by 20 mg of IV Lasix. After discussion we decided to start her on Eliquis instead of Coumadin. On 07/09 postoperative day #5 patient went into a rate controlled
atrial fibrillation however she did feel more symptomatic in atrial fibrillation. She was given amnio boluses and resumed on oral Amio however given her symptomatic atrial fibrillation she was transferred back to the CVICU and had a bedside
cardioversion. Post cardioversion she received 1 Amio bolus and an amnio drip at 0.5 mg an hour for 6 hours. On 07/10 postoperative day #6 patient remains sinus rhythm and tolerating p.o. amnio and metoprolol. Midodrine was continued for blood
pressure support however, it was decreased to 5 mg 3 times daily. On 07/11 postoperative day #7, her blood pressure remained stable and heart rate remained stable sinus rhythm in the 60s. 2 view chest x-ray prior to discharge showed a moderate
left effusion. She will be sent home with PO lasix and a repeat CXR in 1 week. She was deemed stable for discharge
Home medication changes:
See below
Discharge Plan
-
Patient Disposition: Home (Routine Discharge)
Discharge Diagnosis/Procedures: AVR/MVR and LAAC
Condition: Good
Diet: 2 Gram Sodium and Restrict fluids to 48 oz
Activity: No strenuous activity
Driving Restrictions: Not until seen by your Dr
Bathing Restrictions: OK to Shower
Blood Work: BMP in 1 week
Others Tests: CXR in 1 week
Other Services: Cardiac Rehab
Specialty Instructions: Weigh Daily- Call MD for wt gain/loss 3 lbs overnight/5 lbs in 1 week
Activity Restrictions/Additional Instructions:
Please call to make appointments for Phase II Cardiac Rehab:
1) [facility]: [phone] (11 min away)
2) [facility]: [phone] (18 min away)
ACTIVITY:
-No strenuous activity: no heavy lifting, pushing, pulling anything over 15 pounds for one month
-continue to use stairs as tolerated
DRIVING RESTRICTIONS:
-No driving for one month or until approved by your surgeon
WOUND CARE:
-Shower daily. Use soap & water.
-No lotions, creams or powders on incision area.
DIET:
-continue a low fat/low cholesterol diet.
-IF you are diabetic, continue carb controlled diet.
CARDIAC REHAB:
-Please make appointment to start in 5-6 weeks with your local hospital program. (See Cardiac Rehabilitation Discharge Booklet).
SPECIALTY INSTRUCTIONS:
-Weigh yourself daily. Call your physician for any weight gain/loss of 3 lbs overnight or 5 lbs in one week.
-REPORT any clicking noise or uneven appearance of your sternum to your surgeon immediately.
-If you smoke, you are instructed to quit. The [place] smoking hotline phone number is [phone]
Referrals:
[facility] [Outside]
Aleja Chaney MD [Active] - 08/23/24 3:20 pm
London Mcguire MD [Active] - 08/03/24 2:00 pm
UNKNOWN - PT NOT,INTERVIEWE [Family Provider] -
Prescriptions:
New
amiodarone 200 mg Tablet
200 mg PO DAILY Qty: 60 0RF
Rx Instructions:
Please take 200mg twice a day for 14 days and then decrease to 200mg daily
midodrine 5 mg Tablet
5 mg PO TID@0800,1300,1800 Qty: 30 0RF
acetaminophen 325 mg Tablet
650 mg PO Q4HPRN PRN (Reason: mild pain,headache,temp >101F ) Qty: 0 0RF
aspirin 81 mg Tablet,Chewable
81 mg PO DAILY Qty: 0 0RF
furosemide 20 mg Tablet
20 mg PO DAILY Qty: 5 0RF
gabapentin 100 mg Capsule
100 mg PO TID Qty: 30 0RF
metoprolol succinate 25 mg Tablet Extended Release 24 Hr
12.5 mg PO DAILY Qty: 30 1RF
oxycodone 5 mg Tablet
2.5 mg PO Q4HPRN PRN (Reason: severe pain) Qty: 7 0RF
pantoprazole 40 mg Tablet,Delayed Release (Dr/Ec)
40 mg PO DAILY Qty: 30 0RF
Continued
atorvastatin 10 mg Tablet
10 mg PO DAILY
Eliquis 5 mg Tablet
5 mg PO BID
levothyroxine [Synthroid] 100 mcg Tablet
100 mcg PO DAILY
Discontinued
lisinopril 2.5 mg Tablet
2.5 mg PO DAILY
furosemide 20 mg Tablet
20 mg PO BID
Discharge Orders:
Discharge Patient (As Directed); Ordered 07/11/24
Ordered By: Vilma Grace
Care Plan Goals
Care Plan Goals:
Problem: Readiness for enhanced knowledge related to diagnosis and treatment plan
Goal: Understand your diagnosis and treatment plan needs, including medications if applicable.
Instructions: Know your diagnosis, underlying causes and treatment plan options, including medications if applicable. Consult with your health care team to learn about your diagnosis and treatment plan, including medications if applicable.
Discharge Date and Time
Print Language: THAI
--- NOTE | 2024-07-11 16:15 | CM ---
Reviewed chart. Telephone call to [facility] to review blood pressure and to call to CT Surgery Office. Left message. Daughter will be home to assist in her care. Medical work-up in progress. The discharge plan is to return home
with her daughter and son-in-law with [facility] when medically stable.
--- NOTE | 2024-07-11 18:42 | W.PN.CD ---
Today's Communication / Plan
-
gentle diuresis and beta arben
Impression / Plan
-
68 [place]ian speaking female with bicuspid aortic valve with severe symptomatic aortic stenosis/aortic insufficiency, rheumatic moderate mitral regurgitation, paroxysmal atrial fibrillation (on Eliquis, last dose 06/28/24), HFpEF, mild nonobstructive
CAD and hypothyroidism, s/p AVR/MVR 07/04/24.
Optical Worker: Dr. Villareal ([facility])
Near syncope
-Recurrent presyncope is associated with atrial flutter, now significantly improved in sinus rhythm
-Hemodynamically unstable s/p DC cardioversion and transferred back to ICU, now improved
-Patient's symptoms completely resolved with resolution of atrial flutter
-Ambulating without symptoms of lightheadedness
Severe aortic stenosis s/p 25 mm Saunders Inspiris Resilia (25 mm) on 07/04/[address] Mcguire
Moderate�severe rheumatic mitral regurgitation s/p Saunders mitral wrist Resilia (27 mm)
-Pre-LVEF 45%, post LVEF 55% on dobutamine without RWMA
-At conclusion of case, AV mean gradient 3 mmHg, MV 2 mmHg
-Required no blood products, 250 mL Cell Saver
-07/05 EKG sinus with mildly prolonged QT
-Low SBP post procedure with mild orthostasis, cont. midodrine
HFpEF, chronic
-RHC with PCWP 30 on admission -> diuresis restarted yesterday
-Admitting weight 81.4 kg, CXR with pulmonary edema, she received furosemide this morning
-Trend daily weight, I/O, and BMP
-Heart failure education
Paroxysmal atrial fibrillation
-Left atrial maze (RF ablation and cryo) with 40 mm NANCY clip during surgery
-Back in atrial fibrillation / flutter s/o DCCV 07/09/24
-Now in sinus rhythm and tolerating it well. Sinus bradycardia noted. With first-degree AV block
-Oral anticoagulation: Apixaban 5 mg twice daily resumed 07/08/2024
-restarted low dose metoprolol today
Leukocytosis, perhaps reactive, stable
Chest pain, resolved with discontinuation of [place]
SUBJECTIVE:
Feeling better. Tired but dizziness with ambulation resolved.
DATA:
Right heart catheterization, 06/30/2024:
1. Elevated biventricular filling pressures with moderate post-capillary pulmonary hypertension and reduced cardiac index
HEMODYNAMIC DATA
SBP 168/80 (mean 115)
RA 15
RV 51/12 (EDP 16)
PA 46/31 (mean 37)
PCWP 30 (v-waves to 38)
CO/CI 3.46/1.90
SVR 2312
PVR 2.0
Physical Exam
Vital Signs/Labs
Vital Signs
Temp Pulse Resp BP Pulse Ox
36.6 C 70 16 134/74 99
07/11/24 15:24 07/11/24 18:03 07/11/24 15:24 07/11/24 17:12 07/11/24 15:25
07/10/24 07/11/24 07/12/24
06:59 06:59 06:59
Actual Weight 82.6 kg 81.6 kg
07/11/24 06:17
07/11/24 06:17
PT 14.5 Sec (11.4-14.6) 07/09/24 02:45
INR 1.15 07/09/24 02:45
APTT 36.6 Sec (23.4-35.0) H 07/04/24 11:37
Magnesium 2.4 mg/dl (1.6-2.3) H 07/10/24 03:56
Physical Exam
Constitutional: No acute distress
Cardiovascular: Rhythm & rate is regular and Pedal edema present
Respiratory: Respiratory effort normal
Neuro/Psych: Alert and Oriented
Data Reviewed
-
Date of Service: July 11, 2024
Medical Decision Making: Reviewed Test Results
EKG: Report Reviewed by me
Labs: Labs Reviewed by me
== END 2024-07-11 19:30 | disposition home health service (06) | DRG 212 ==
LOC: CVICU 09:15
PROVIDERS: Anesthesiology; Clinical Nurse Specialist Acute Care; Nurse Practitioner; Nurse Practitioner Primary Care; Physician Assistant Medical; Thoracic Surgery (Cardiothoracic Vascular Surgery); ADMITTING PHYSICIAN Thoracic Surgery (Cardiothoracic Vascular Surgery); CONSULT PHYSICIAN Internal Medicine Critical Care Medicine
PROC: 4A023N6 Measurement of Cardiac Sampling and Pressure, Right Heart, Percutaneous Approach (ICD-10-PCS; 2024-06-30)
PROC: 02RF08Z Replacement of Aortic Valve with Zooplastic Tissue, Open Approach (ICD-10-PCS; 2024-07-04)
PROC: 02580ZZ Destruction of Conduction Mechanism, Open Approach (ICD-10-PCS; 2024-07-04)
PROC: 5A1221Z Performance of Cardiac Output, Continuous (ICD-10-PCS; 2024-07-04)
PROC: B24BZZ4 Ultrasonography of Heart with Aorta, Transesophageal (ICD-10-PCS; 2024-07-04)
PROC: 02L70CK Occlusion of Left Atrial Appendage with Extraluminal Device, Open Approach (ICD-10-PCS; 2024-07-04)
PROC: 02RG08Z Replacement of Mitral Valve with Zooplastic Tissue, Open Approach (ICD-10-PCS; 2024-07-04)
PROC: 5A2204Z Restoration of Cardiac Rhythm, Single (ICD-10-PCS; 2024-07-09)
DX: I08.0 Rheumatic disorders of both mitral and aortic valves (principal); I50.33 Acute on chronic diastolic (congestive) heart failure; T81.11XA Postprocedural cardiogenic shock, initial encounter; I48.92 Unspecified atrial flutter; D62 Acute posthemorrhagic anemia; J98.11 Atelectasis; I42.8 Other cardiomyopathies; I48.0 Paroxysmal atrial fibrillation; E03.9 Hypothyroidism, unspecified; I89.0 Lymphedema, not elsewhere classified; E66.811 Obesity, class 1; I95.81 Postprocedural hypotension; E04.9 Nontoxic goiter, unspecified; I25.10 Atherosclerotic heart disease of native coronary artery without angina pectoris; Y83.2 Surgical operation with anastomosis, bypass or graft as the cause of abnormal reaction of the patient, or of later complication, without mention of misadventure at the time of the procedure; E86.1 Hypovolemia; R00.1 Bradycardia, unspecified; G89.29 Other chronic pain; M54.50 Low back pain, unspecified; I27.29 Other secondary pulmonary hypertension; M19.90 Unspecified osteoarthritis, unspecified site; Z79.01 Long term (current) use of anticoagulants; Z79.899 Other long term (current) drug therapy
CPT/HCPCS: 88305; 88311; 33259; 36600; 71045; 71046; 80048; 80053; 81003; 82330; 82565; 82805; 82810; 82947; 82962; 83036; 83735; 84132; 84302; 84484; 84520; 85014; 85018; 85027; 85049; 85610; 85730; 86850; 86900; 86901; 86920; 93005; 93306; 93312; 93320; 93325; 93451; 93503; 94002; C1894; J2916; P9045; P9047